=== PATIENT | male | born 1950 | race Caucasian/White ===

== ENCOUNTER 2016-09-27 18:59 | Inpatient (IN) | payer OTHER ==
[~2016-09-27] VITALS: Ht 177.8 cm; Wt 53.2 kg
--- NOTE | ~2016-09-27 | HEMODYNAMI ---
PATIENT:MICKY NY MEDICAL RECORD: [id number] : 54 LOCATION:[facility] D.2205 ADMISSION DATE: 09/27/16 Generatedon:10/01/201613:35 Patient name: MICKY NY Patient #: [id number] SSN: : 1950 Date of study: 10/01/2016 Page: Of Hemodynamic Procedure Report Patient Data Patient Demographics Procedure consent was obtained First Name: MICKY Gender: Male Last Name: YANELY : 1950 [facility] Initial: DANIELLE Age: 66 year(s) Patient #: [id number] Race: Unknown Additional ID: [id number] Contact details [address]: [address] [place] [address] State: [place] City: [place] Zip code: [address] Past Medical History Allergies Allergen Reaction Date Comments Reported Dye contrast 10/01/2016 media Admission Admission Data Admission Date: 09/27/2016 Admission Time: 18:59 Room #: D.2205 Height (in.): 60 BSA: 1.49 (m2) Height (cm.): 152.4 BMI: 22.85 (kg/m2) Weight (lbs.): 117 Weight (kg.): 53.07 Procedure Procedure Types Cath Procedure Peripheral Cath Diagnostic Procedure Cath Peripheral Abd/Extremity Visceral/Mesenteric Mesenteric Arteriogram (Abd Artery) Procedure Description Procedure Date Procedure Date: 10/01/2016 Procedure Start Time: 11:50 Procedure Staff Name Function Gorge Schroeder MD Performing Physician Jose Enrique Gama RT Scrub Kylie Viveros RN Nurse Rosita Plummer RT Firearms Instructor Rosita Plummer RT Monitor Procedure Data Cath Procedure Fluoroscopy Diagnostic fluoroscopy Total fluoroscopy Time: 14 time: 14 min min Diagnostic fluoroscopy Total fluoroscopy dose: dose: 3706.41 mGy 3706.41 mGy Contrast Material Contrast Material Type Amount (ml) Isovue 300 220 Entry Location Entry Primary Successful Side Size Upsize Upsize Entry Closure Succes sful Closure Location (Fr) 1 (Fr) 2 (Fr) Remarks Device Remarks Femoral Right 5 Fr artery Femoral Right Exoseal artery Diagnostic catheters Device Type Used For End Catheter Placement Merit ULTRA BOLUS FLUSH 5Fr 65CM catheter Angiodynamics SOS OMNI 2 NON B 5FR 65CM catheter Procedure Medications Medication Administration Route Dosage Solumedrol I.V. 125 mg Benadryl I.V. 50 mg Oxygen NC 3 l/min Heparin Flush Bag added to field 3 bags (1000units/500ml NS) Lidocaine 1% added to field 20 Versed I.V. 1 mg Versed I.V. 1 mg Fentanyl I.V. 50 mcg Heparin Bolus I.V. 5000 units Fentanyl I.V. 50 mcg Versed I.V. 1 mg Hemodynamics Rest BSA: 1.49 (m2) O2 Consumption: Estimated: 190.7 (ml/min) O2 Consumption indexed: Estimated:127.99 (ml/min/m) Heart Rate: 100 (bpm) Snapshots Pre Cath Intra NCS Post Cath Vital Signs Time Heart Resp SPO2 NIBP (mmHg) Rhythm Pain Sedation Rate (ipm) (%) Status Level (bpm) 11:38:36 96 13 100 Measuring NSR 0 (11) 10(A) , No pain 11:38:58 93 14 100 145/88(119) NSR 0 (11) 10(A) , No pain 11:43:10 96 11 100 143/89(103) NSR 0 (11) 10(A) , No pain 11:47:24 82 12 100 146/86(127) NSR 0 (11) 10(A) , No pain 11:51:40 86 10 100 147/82(111) NSR 0 (11) 10(A) , No pain 11:55:54 88 8 100 143/85(98) NSR 0 (11) 9(A) , No pain 12:00:57 87 8 100 124/86(101) NSR 0 (11) 9(A) , No pain 12:05:56 82 10 100 155/64(119) NSR 0 (11) 9(A) , No pain 12:10:55 94 10 99 Measuring NSR 0 (11) 9(A) , No pain 12:11:10 99 16 100 150/80(112) NSR 0 (11) 10(A) , No pain 12:16:15 117 14 100 Disturbed NSR 0 (11) 10(A) , No pain 12:18:36 100 9 96 Disturbed NSR 0 (11) 10(A) , No pain 12:27:02 93 17 100 Time NSR 0 (11) 9(A) Exceeded , No pain 12:28:14 98 8 99 138/78(99) NSR 0 (11) 9(A) , No pain 12:33:13 93 12 100 Measuring NSR 0 (11) 9(A) , No pain 12:33:19 91 10 100 145/82(100) NSR 0 (11) 9(A) , No pain 12:37:33 93 12 99 152/74(108) NSR 0 (11) 9(A) , No pain 12:42:32 96 9 100 Measuring NSR 0 (11) 9(A) , No pain 12:43:56 96 13 100 Time NSR 0 (11) 9(A) Exceeded , No pain 12:47:45 100 10 100 121/75(98) NSR 0 (11) 9(A) , No pain 12:51:49 100 12 99 124/82(94) NSR 0 (11) 10(A) , No pain 12:55:51 93 11 98 128/93(100) NSR 0 (11) 10(A) , No pain 13:00:01 96 18 99 91/68(83) NSR 0 (11) 10(A) , No pain 13:05:00 97 13 99 Measuring NSR 0 (11) 9(A) , No pain 13:06:22 98 10 98 90/66(78) NSR 0 (11) 9(A) , No pain 13:10:22 96 9 100 97/60(75) NSR 0 (11) 9(A) , No pain 13:14:23 98 12 100 105/65(94) NSR 0 (11) 9(A) , No pain 13:18:27 88 12 99 112/65(97) NSR 0 (11) 10(A) , No pain 13:23:32 98 14 99 112/71(91) NSR 0 (11) 10(A) , No pain 13:27:30 103 18 100 120/91(109) NSR 0 (11) 10(A) , No pain 13:31:34 109 16 99 120/80(101) NSR 0 (11) 10(A) , No pain Medications Time Medication Route Dose Verified Delivered Reason Notes Effectiveness by by 11:22:08 Benadryl I.V. 50 mg Kylie Kylie comtrast King ZENON Viveros disc pad knockout worker 11:22:54 Solumedrol I.V. 125 Kylie Kylie comtrast mg King ZENON Viveros disc pad knockout worker 11:42:03 Oxygen NC 3 Kylie Kylie Per protocol l/min King ZENON Viveros ZENON 11:42:18 Heparin Flush added 3 Kylie Kylie used for Bag to bags Felice ZENON Felice painter ordnance (1000units/500ml field NS) 11:42:29 Lidocaine 1% added 20ml Klyie Kylie for local to vial Felice ZENON Viveros RN anesthetic field 11:49:50 Versed I.V. 1 mg Kylie Kylie for sedation King ZENON Viveros ZENON 12:18:12 Versed I.V. 1 mg Kylie Kylie for sedation King ZENON Viveros RN 12:18:20 Fentanyl I.V. 50 Kylie Kylie for sedation mcg King ZENON Viveros RN 12:41:14 Heparin Bolus I.V. 5000 Kylie Kylie for units King ZENON Viveros RN anticoagulation 12:56:40 Fentanyl I.V. 50 Kylie Kylie for sedation mcg King EZNON Viveros RN 13:01:12 Versed I.V. 1 mg Kylie Kylie for sedation King ZENON Viveros brewmaster Log Time Note 10:17:25 Patient Height : 60 inches 10:17:32 Patient Weight : 117 lbs 11:22:08 Benadryl 50 mg I.V. was given by Kylie Viveros RN; comtrast allergy; 11:22:54 Solumedrol 125 mg I.V. was given by Kylie Viveros RN; comtrast allergy; 11:23:43 Time tracking: Regular hours 11:24:02 Plan of Care:Hemodynamics will remain stable., Cardiac rhythm will remain stable., Comfort level will be maintained., Respiratory function will remain adequate., Patient/ family verbilizes understanding of procedure., Procedure tolerated without complication., Recovers from procedure without complications.. 11:24:05 Correct patient and procedure confirmed by team. 11:24:08 Signed procedure consent form obtained from patient. 11:24:09 - 11:24:14 Use device set IR Diagnostic 11:24:15 Sterile Angiographic Pack opened to sterile field. 11:24:18 Bag Decanter opened to sterile field. 11:24:19 Acist Manifold opened to sterile field. 11:24:20 Acist Hand Control opened to sterile field. 11:24:21 Acist Syringe opened to sterile field. 11:24:44 Cook OffermaticSON 145cm guide wire opened to sterile field. 11:24:45 Micropuncture VSI 4FR kit opened to sterile field. 11:24:46 St Yeison 5FR Sheath opened to sterile field. 11:24:57 - 11:25:05 H&P Date Dictated: 10/01/2016 Within 30 days and on chart.. 11:25:07 Pre-procedure instructions explained to patient. 11:25:08 Pre-op teaching completed and patient verbalized understanding. 11:25:11 Family in waiting room. 11:25:36 Patient NPO since Midnight. 11::46 Patient allergic to Dye contrast media 11:25:51 Is the patient allergic to Iodine/contrast media? Yes. 11:25:54 Was the patient premedicated? Yes 11:26:01 Is patient on blood thinner?No 11:26:05 Patient diabetic? No. 11:26:08 - 11:26:10 ----Pre-sedation anethsthesia assessment.---- 11:26:15 Previous problem with sedation/anesthesia? No ? 11:26:18 Snore? No 11:26:20 Sleep apnea? No 11:26:22 Deviated septum? No 11:26:25 Opens mouth fully? Yes 11:26:27 Sticks out tongue? Yes 11:26:31 Airway obstruction? No ? 11::38 Dentures? No ? 11:26:42 - 11:27:02 Pre procedure: right dorsailis pedis pulse 2+ Normal; easily identifiable; not easily obliterated 11::18 Pre procedure: right posterior tibial pulse Doppler 11:27:28 Rythm: SR with frequent PVCs and PACs pre procedure 11:27:32 IV patent on arrival in left forearm with 0.9% NaCl at [facility]. 11::38 Right groin area was prepped with chlora-prep and draped in sterile fashion 11:27:40 Alarms reviewed by RHomero NHomero 11:27:41 Sharps counted by scrub and verified by R.N. 11:27:41 - 11:30:43 Terumo TORQUE DEVICE PLASTIC .038 opened to sterile field. 11:30:43 Terumo ANGLE 180L glide wire opened to sterile field. 11:30:45 Terumo 5FR COBRA 65CM glide catheter opened to sterile field. 11:36:46 Vital chart was started 11:38:35 ECG and BP/O2 sat monitors applied to patient. 11:38:36 Baseline sample Acquired. 11:38:42 Full Disclosure recording started 11:38:44 - 11:39:02 TUBING, CONTRAST INJCTN HI PRES opened to sterile field. 11:39:06 A Divesquare ULTRA BOLUS FLUSH 5Fr 65CM catheter was advanced over the wire and used for . 11:42:03 Oxygen 3 l/min NC was given by Kylie Viveros RN; Per protocol; 11:42:18 Heparin Flush Bag (1000units/500ml NS) 3 bags added to field was given by Kylie Viveros RN; used for procedure; 11:42:29 Lidocaine 1% 20ml vial added to field was given by Kylie Viveros RN; for local anesthetic; 11:46:05 Physician arrived 11:47:30 [employer] Amplatz Super Stiff 75CM guide wire opened to sterile field. 11:49:28 --------ALL STOP TIME OUT------ 11:49:29 Final Timeout: patient, procedure, and site verified with staff and physician. All members of the team are in agreement. 11:49:44 Physical assessment completed. ASA score P 3 - A patient with severe systemic disease as per Gorge Schroeder MD. 11:49:49 Sedation plan: IV Moderate Sedation Versed, Fentanyl 11:49:50 Versed 1 mg I.V. was given by Kylie Viveros RN; for sedation; 11:50:02 Procedure started. 11:50:06 Local anesthetic to right femoral artery with Lidocaine 1% by Gorge Schroeder MD.INITIAL ACCESS ONLY 11:50:10 Arterial access obtained using ultrasound guidance. 11:51:15 A 5 Fr sheath was inserted into the Right Femoral artery 11:59:03 Terumo 5FR ANGLED 65CM glide catheter opened to sterile field. 12:09:38 Abdominal Aortagram was performed. 12:14:11 A Angiodynamics SOS OMNI 2 NON B 5FR 65CM catheter was advanced over th e wire and used for . 12:18:12 Versed 1 mg I.V. was given by Kylie Viveros RN; for sedation; 12:18:20 Fentanyl 50 mcg I.V. was given by Kylie Viveros RN; for sedation; 12:19:50 Cook GREGG 180 guide wire opened to sterile field. 12:22:33 Encore Inflation Device opened to sterile field. 12:22:41 Cook DL 1 6FR. Guide sheath opened to sterile field. 12:34:57 Cook Bentson 260cm 0.035 guide wire opened to sterile field. 12:35:45 IV infiltrated left forearm. DC's catheter tip intact. New IV started right hand x one attempt #20 angiocath. NS KVO. 12:41:14 Heparin Bolus 5000 units I.V. was given by Kylie Viveros RN; for anticoagulation; 12:45:49 Inflation number: 3 A Cordis Powerflex Pro 3.0 x 20 x 80cm balloon was prepped and advanced across the Undefined1, then inflated to 0 ROSMERY for 0:07 (min:sec). 12:46:10 Inflation Number: 1 A Cordis Amanda 6 x 29 x 135 stent was prepped and advanced across the Undefined1. The stent was deployed at 0 ROSMERY for 0:00 (min:sec). 12:48:39 Inflation number: 2 A Cordis Powerflex Pro 5.0 x 20 x 80cm balloon was prepped and advanced across the Undefined1, then inflated to 0 ROSMERY for 0:07 (min:sec). 12:56:40 Fentanyl 50 mcg I.V. was given by Kylie Viveros RN; for sedation; 13:01:12 Versed 1 mg I.V. was given by Kylie Viveros RN; for sedation; 13:16:58 St Yeison 6Fr sheath opened to sterile field. 13:17:47 Cordis 6Fr Exoseal opened to sterile field. 13:25:09 A sheath was inserted into the Right Femoral artery 13:25:09 Sheath removed intact; hemostasis achieved with Exoseal to the Right Femoral artery. 13:25:15 Procedure and supply charges have been captured, reviewed, submitted an d are correct. 13:32:25 Procedure ended.(Physican Out) 13:32:54 Fluoroscopy time 14.00 minutes. 13:33:08 Fluoroscopy dose: 3706.41 mGy 13:33:08 Flurop Dose total: 3706.41 13:33:23 Contrast amount:Isovue 300 220ml. 13:33:24 Sharps counted by scrub and verified by R.N. 13:35:49 Vital chart was stopped Intervention Summary Intervention Notes Time ActionType Lesion and Equipment Action# Pressure Duration Attributes Used 12:45:49 Inflate Undefined1 Cordis 3 0 00:07 balloon Powerflex Pro 3.0 x 20 x 80cm balloon 12:46:10 Place stent Undefined1 Cordis 1 0 00:00 Amanda 6 x 29 x 135 stent 12:48:39 Inflate Undefined1 Cordis 2 0 00:07 balloon Powerflex Pro 5.0 x 20 x 80cm balloon Device Usage Item Name Manufacture Quantity Catalog Number Hospital Part Current Sc nimal Lot# / Charge Number Stock Stock Serial# Code Sterile Cardinal 1 [id number] 188699 122715 5 Angiographic Health Pack Bag Decanter Microtek 1 [id number] 986749 80070 627515 5 Medical Inc. Acist Acist Medical 1 68013 414569 833669 918947 5 Manifold Systems Inc Acist Hand Acist Medical 1 77563 249706 998645 995659 5 Control Systems Inc Acist Syringe Acist Medical 1 71636 373957 261878 458073 20 Systems Inc [facility] 1 [id number] 634487 436606 5 [id number] 145cm guide wire Micropuncture VSI VASCULAR 1 7266V 334562 577044 [address]SI [address] kit [address] Yeison 5FR St Yeison 1 961637 875881 923300 5 [id number] Sheath Terumo TORQUE [place] 1 TD01 445847 570376 860089 5 DEVICE Scientific PLASTIC .038 Terumo ANGLE Terumo 1 [id number] 025926 999032 5 180L glide wire Terumo 5FR Terumo 1 CG502 386404 328749 5 COBRA 65CM glide catheter TUBING, [facility] Medical 1 [id number] 152149 249939 024978 5 CONTRAST INJCTN HI PRES [facility] ULTRA [facility] Medical 1 [id number] 256376 027778 5 BOLUS FLUSH 5Fr 65CM catheter [place] Sci [place] 1 [id number] 001325 045995 250009 5 Amplatz Super Scientific Stiff 75CM guide wire Terumo 5FR Terumo 1 CG507 967462 744563 5 ANGLED 65CM glide catheter Angiodynamics Angiodynamics 1 [id number] 761167 78431 047709 5 SOS OMNI 2 NON B 5FR 65CM catheter [facility] 1 A69001 300965 309735 5 8497873 180 guide wire Encore [place] 1 [id number] 612108 433128 772505 5 Inflation Scientific Device Cook DL 1 Cook Medical 1 B71846 383755 686255 5 [id number] 6FR. Guide sheath Cook Bentson Cook Medical 1 A65640 083853 268048 816682 4 4297899 260cm 0.035 guide wire Cordis Cardinal 1 [id number] 014197 710795 5 [id number] Amanda 6 x Health 29 x 135 stent Cordis Cardinal 1 [id number] 070428 760105 744930 5 Powerflex Pro Health 5.0 x 20 x 80cm balloon Cordis Cardinal 1 [id number] 995618 847466 5 Powerflex Pro Health 3.0 x [address] Yeison [address] St Yeison 1 194717 976438 600530 5 [id number] sheath Cordis 6Fr Cardinal 1 EX600 519287 585339 281769 10 [facility] Signature Audit [place] Stage Time Signature Unsigned Intra-Procedure 10/01/2016 Rosita Plummer 1:35:35 PM RT(R) Signatures Monitor : Rosita Plummer RT Signature : Date : Time : [facility] [address] [place] [address]
[~2016-09-27 18:59] MED LIST: AVODART0.5 MG PO; BAYER CHEWABLE81 MG PO; NEURONTIN 100100 MG PO; PLAVIX75 MG PO; PRINIVIL10 MG PO
[2016-09-27] MEDS ORDERED: PROTONIX40 MG PO (19:37)
[2016-09-27] MEDS ORDERED: CARAFATE1 G PO (19:38)
[2016-09-27] MEDS ORDERED: HYDROCODONE-APA1 TAB PO (19:38)
[2016-09-27] MEDS ORDERED: VITAMIN B-1000 MCG/M IM (19:39)
[2016-09-27] MEDS ORDERED: FOLIC ACID1 MG PO (19:39)
[2016-09-27] MEDS ORDERED: FLOMAX0.4 MG PO (19:40)
[2016-09-27] MEDS ORDERED: MULTI-DAY VITAM1 TAB PO (19:40)
[2016-09-27] MEDS ORDERED: VITAMIN D2000 UNIT PO (19:41)
[2016-09-27] MEDS ORDERED: PROBIOTIC1 EAC1 PO (19:41)
[2016-09-28] VITALS (11 sets, daily range): BP systolic 106–141; BP diastolic 57–79; Ht 177.8 cm; Wt 53.2 kg
[2016-09-28 05:25] LABS: BASOPHILS 0.1 % (0.0-2.0); EOSINOPHILS 4.7 % (0-7); HEMATOCRIT 22.5 % (42.0-54.0); IMMATURE GRANULOCYTES 0.1 % (0-5); LYMPHOCYTES 25.6 % (15-50); MCH 33.5 pg (26.0-34.0); MCHC 32.4 g/dL (31.0-37.0); MCV 103.2 fL (80.0-100.0); MEAN PLATELET VOLUME 9.5 fL (7.4-10.4); MONOCYTES 8.6 % (2-11); NEUTROPHILS 60.9 % (40-80); RBC 2.18 10x6/uL (4.20-6.10); RDW 20.6 % (11.5-14.5); WBC 7.3 10x3/uL (4.8-10.8)
[2016-09-28 05:42] LABS: HEMOGLOBIN 7.3 g/dL (13.5-17.5); PLATELET COUNT 299 10x3/uL (130-400)
[2016-09-28 05:49] LABS: ALBUMIN 2.1 g/dL (3.4-5.0); ALKALINE PHOSPHATASE 84 U/L (46-116); ALT (SGPT) 10 U/L (10-68); BILIRUBIN - TOTAL 0.46 mg/dL (0.2-1.3); CALC OSMOLALITY 278 mosm/kg (275-300); CALCIUM 8.4 mg/dL (8.5-10.1); CARBON DIOXIDE 29.3 mmol/L (21.0-32.0); CHLORIDE - SERUM 103 mmol/L (98-107); CREATININE - SERUM 0.8 mg/dL (0.6-1.3); GLUCOSE 103 mg/dL (74-106); POTASSIUM - SERUM 3.8 mmol/L (3.5-5.1); PROTEIN - SERUM 5.9 g/dL (6.4-8.2); SODIUM 139 mmol/L (136-145); UREA NITROGEN 15 mg/dL (7-18); eGFR NON AFRICAN AMERICAN > 90 mL/min (90-120)
--- NOTE | 2016-09-28 07:20 | NUR ---
PATIENT RECEIVED ALERT IN HIGH BLAKE POSITION WATCHING TV. RESPIRATIONS EVEN AND UNLABORED. RATES PAIN 3/10. SIDE RAILS UP X2. BED IN LOW POSITION. CALL LIGHT IN REACH.
--- NOTE | 2016-09-28 08:45 | NUR ---
PATIENT ALERT IN BED. NO SIGNS OF DISTRESS NOTED. NEW BOTTLE OF PROCAL INITIATED. IV TUBING CHANGED. PATIENT DENIES NEEDS. AT BEDSIDE. SIDE RAILS UP X2. BED IN LOW POSITION. CALL LIGHT IN REACH.
[2016-09-28 09:08] LABS: AMYLASE - SERUM 35 U/L (25-115); LIPASE 249 U/L (73-393)
--- NOTE | 2016-09-28 09:40 | NUR ---
DILAUDID OVEN BUILDER SET ACCORDING TO ORDER. USE EXPLAINED. STATES UNDERSTANDING. SIDE RAILS UP X2. BED IN LOW POSITION. CALL LIGHT AND OVEN BUILDER BUTTON IN REACH. PRESENT.
[2016-09-28 10:24] LABS: MAGNESIUM - SERUM 1.6 mg/dL (1.8-2.4); PHOSPHOROUS 3.2 mg/dL (2.5-4.9)
[2016-09-28 10:44] LABS: APPEARANCE CLEAR (CLEAR); COLOR DK YELLOW (YELLOW)
[2016-09-28 10:45] LABS: BACTERIA FEW /hpf (NONE SEEN); BILIRUBIN NEGATIVE (NEGATIVE); EPITHELIAL CELLS RARE /hpf (0-5); GLUCOSE NEGATIVE (NEGATIVE); KETONE NEGATIVE (NEGATIVE); LEUKOCYTE ESTERASE NEGATIVE (NEGATIVE); MUCUS >1+ /lpf (NONE SEEN); NITRITE NEGATIVE (NEGATIVE); PROTEIN NEGATIVE (NEGATIVE); SPECIFIC GRAVITY 1.025 (1.005-1.020)
[2016-09-28 10:46] LABS: RED CELLS - URINE RARE /hpf (0-5)
--- NOTE | 2016-09-28 11:45 | NUR ---
SCDS ON BILATERALLY. USE EXPLAINED. DENIES NEEDS. SIDE RAILS UP X2. BED IN LOW POSITION. CALL LIGHT IN REACH.
--- NOTE | 2016-09-28 13:00 | NUR ---
PATIENT IN HIGH BLAKE POSITION RESTING WITH EYES CLOSED. RESPIRATIONS EVEN AND UNLABORED. SIDE RAILS UP X2. BED IN LOW POSITION. CALL LIGHT IN REACH.
--- NOTE | 2016-09-28 13:21 | NUR ---
20 GAUGE IV SITED TO RIGHT FOREARM X1 ATTEMPT BY ZENON STORY
--- NOTE | 2016-09-28 15:55 | NUR ---
FIRST UNIT PRBC INITIATED. TRANSFUSING TO RIGHT FOREARM WITHOUT DIFFICULTY. VITAL SIGNS STABLE. DENIES NEEDS. AT BEDSIDE. SIDE RAILS UP X2. BED IN LOW POSITION. CALL LIGHT AND RANGER AIDE BUTTON IN REACH.
--- NOTE | 2016-09-28 16:51 | NUR ---
Patient Name: MICKY NY Admission Status: Elective Accout number: [id number] Admission Date: 09-27-2016 : 1950 Admission Diagnosis: Attending: CLIFFORD Current LOS: 1 Anticipated DC Date: 10-01-2016 Planned Disposition: Home Primary Insurance: [employer] PPO Discharge Planning Comments: CM MET WITH PATIENT AND (SANDRINE) REGARDING D/C NEEDS AND PLANS. PATIENT STATED THERE ARE 4 STEPS W/O RAILS TO ENTER HOME AND NO STAIRS INSIDE HOME. PATIENT IS INDEPENDENT WITH HIS CARE AND HAS NO DME AT HOME. PATIENT HAS NOT HAD HOME HEALTH. PATIENTS PCP IS DR. BECERRA AND PHARMACY IS [facility]. CM WILL CONTINUE TO FOLLOW PATIENT WITH D/C NEEDS AND PLANS. PCP DR[facility]- [phone] SANDRINE (SPOUSE) [phone] Supervisor Electronics Assembly: Chantel Landry Is the patient Alert and Oriented? Yes 0 * How many steps to enter\exit or inside your home? 4 NO RAILS 0 * PCP DR. BECERRA 0 * Pharmacy [facility] 0 * Preadmission Environment Home with Family 0 * ADLs Independent 0 * Equipment None 0 * List name and contact numbers for known caregivers / representatives who currently or will assist patient after discharge: SANDRINE () [phone] 0 * Community resources currently utilized None 0 * Additional services required to return to the preadmission environment? Yes 0 * Can the patient safely return to the preadmission environment? Yes 0 * Has this patient been hospitalized within the prior 30 days at any hospital? No 0 Grand Total: 0
--- NOTE | 2016-09-28 18:15 | NUR ---
ALERT IN BED. TOLERATING CLD. DENIES NEEDS. SIDE RAILS UP X2. BED IN LOW POSITION. CALL LIGHT IN REACH.
--- NOTE | 2016-09-28 19:46 | NUR ---
PATIENT SITTING UP IN BED WATCHING TV. BLOOD INFUSING TO RIGHT FOREARM IV. NO SIGNS OF DISTRESS NOTED. VSS. DENIES ANY NEEDS AT THIS TIME. PRESENT. BED LOW. CALL LIGHT IN REACH.
[2016-09-29 05:34] LABS: BASOPHILS 0.2 % (0.0-2.0); EOSINOPHILS 0 % (0-7); IMMATURE GRANULOCYTES 0.3 % (0-5); LYMPHOCYTES 8.7 % (15-50); MCHC 33.2 g/dL (31.0-37.0); MEAN PLATELET VOLUME 9.8 fL (7.4-10.4); MONOCYTES 2.1 % (2-11); NEUTROPHILS 88.7 % (40-80); PLATELET COUNT 269 10x3/uL (130-400); RDW 20.8 % (11.5-14.5); WBC 6.7 10x3/uL (4.8-10.8)
[2016-09-29 05:39] LABS: HEMATOCRIT 28.6 % (42.0-54.0); HEMOGLOBIN 9.5 g/dL (13.5-17.5); MCV 96.3 fL (80.0-100.0); RBC 2.97 10x6/uL (4.20-6.10)
[2016-09-29 05:58] LABS: % SATURATION 47 % (15-55); IRON 60 ug/dl (35-150); TOTAL IRON BIND CAPACITY 126 ug/dl (260-445); UNSAT IRON BIND CAPACITY 66 ug/dl (150-375)
[2016-09-29 06:06] LABS: ALBUMIN 2.1 g/dL (3.4-5.0); ALKALINE PHOSPHATASE 104 U/L (46-116); ALT (SGPT) 14 U/L (10-68); AMYLASE - SERUM 27 U/L (25-115); BILIRUBIN - DIRECT 0.24 mg/dL (0.00-0.30); C-REACTIVE PROTEIN 7.8 mg/dL (0.0-0.9); CALC OSMOLALITY 269 mosm/kg (275-300); CARBON DIOXIDE 27.3 mmol/L (21.0-32.0); CHLORIDE - SERUM 100 mmol/L (98-107); CREATININE - SERUM 0.7 mg/dL (0.6-1.3); FERRITIN 986 ng/mL (3-244); GLUCOSE 158 mg/dL (74-106); LDH 103 U/L (85-227); LIPASE 124 U/L (73-393); MAGNESIUM - SERUM 1.8 mg/dL (1.8-2.4); POTASSIUM - SERUM 4.3 mmol/L (3.5-5.1); SODIUM 134 mmol/L (136-145); UREA NITROGEN 10 mg/dL (7-18); eGFR NON AFRICAN AMERICAN > 90 mL/min (90-120)
[2016-09-29 06:48] LABS: ERYTHROCYTE SEDIMENTATION RATE 73 mm/hr (0-20)
--- NOTE | 2016-09-29 07:25 | NUR ---
PATIENT RECEIVED ALERT IN HIGH BLAKE POSITION WATCHING TV. RESPIRATIONS EVEN AND UNLABORED. SIDE RAILS UP X2. BED IN LOW POSITION. CALL LIGHT IN REACH.
[2016-09-29 08:13] VITALS: BP 142/70
--- NOTE | 2016-09-29 08:15 | NUR ---
PATIENT ALERT IN HIGH BLAKE POSITION. NO SIGNS OF DISTRESS NOTED. SCHEDULED PREMEDICATION ADMINISTERED WITH SIP OF WATER FOR MRI. AT BEDSIDE. DENIES NEEDS. SIDE RAILS UP X2. BED IN LOW POSITION. CALL LIGHT IN REACH.
--- NOTE | 2016-09-29 09:45 | NUR ---
PATIENT OFF FLOOR VIA WHEELCHAIR TO MRI
[2016-09-29 10:17] LABS: CEA 2.8 ng/mL (0.0-4.7)
--- NOTE | 2016-09-29 11:35 | NUR ---
PATIENT OFF FLOOR TO GI LAB VIA BED
[2016-09-29 11:56] VITALS: BP 157/74
--- NOTE | 2016-09-29 12:42 | CN ---
PATIENT NAME:MICKY NY MEDICAL RECORD: [id number] : 54 LOCATION:D.[place] [facility] ADMIT DATE: 09/27/16 ACCOUNT: [id number] CONSULTING PHYSICIAN: VALENCIA ARZOLA MD REFERRING PHYSICIAN: GREGORY BECERRA M.D. DATE OF CONSULTATION: 09/28/2016 REFERRING PHYSICIAN: Wilver Mena MD HISTORY OF PRESENT ILLNESS: The patient is a 66-year-old white male who basically was admitted with progressive epigastric pain associated with poor appetite and 20-pound weight loss over the past month or so. I was asked to see the patient in this regard. I actually met this man back in 2007 when he has some lower abdominal pain and pneumaturia. He had a flex sig which revealed severe sigmoid diverticulosis and a colovesical fistula. This was repaired at that time with a sigmoid colectomy. A year or so ago, he had prostate cancer and underwent radiation therapy. He was referred to me last May by Dr. Arshad and Dr. Luis because of a trace heme-positive stool and chronic anemia. This has been a macrocytic anemia. He was reportedly found to have a component of B12 deficiency and was subsequently placed on B12 supplementation. This led to a workup including an EGD and colonoscopy. His colonoscopy was in May of last year and was completely normal with the exception of surgical change consistent with his sigmoid colectomy. He did have a few scattered diverticula and small internal hemorrhoids. He was then hospitalized in August of this year and underwent a laparoscopic cholecystectomy as well as an EGD. His EGD revealed a small hiatal hernia, chronic atrophic gastritis, and multiple superficial and somewhat friable ulcerations throughout the stomach. Biopsies were negative for H. pylori. He was placed on Carafate and Protonix and I have not seen him since then. He did undergo a cholecystectomy and apparently did well for a few days afterwards. However, he has had recurrent symptoms and now was admitted with upper abdominal pain, weight loss and recurrent anemia with hematocrit in the low 20s. He has not seen blood in his stool. PAST MEDICAL HISTORY: As above. He also has cerebrovascular disease, status post carotid endarterectomy. He has had this colovesical fistula. ALLERGIES: MRI CONTRAST DYE. HOME MEDICATIONS: Reportedly include Protonix 40 mg twice daily, Carafate twice daily, vitamins, folic acid, B12, and hydrocodone. He has also been on Neurontin, lisinopril, Avodart and had been on Plavix and aspirin, but I believe these have been discontinued. FAMILY HISTORY: Negative for GI disease. REVIEW OF SYSTEMS: Noncontributory per HPI. SOCIAL HISTORY: The patient is a longtime smoker. He drinks alcohol on social basis. CONSULT REPORT [id number] MICKY [place] PHYSICAL EXAMINATION: GENERAL: Reveals a chronically ill-appearing fairly frail, thin white male who weighs 114 pounds. He is in mild distress. VITAL SIGNS: Stable, afebrile. CHEST: Clear. HEART: Regular rate and rhythm. ABDOMEN: Soft. He has mild epigastric tenderness present. EXTREMITIES: No edema. LABORATORY DATA: Reveals a white count 7000, hematocrit 42, MCV 103, platelet count 209,000 with a normal differential. Electrolytes are normal. BUN 15, creatinine 0.8. Liver enzymes are normal. Phosphorus was normal. UA is negative. CT of the abdomen and pelvis reveals multiple noncalcified nodules in the lungs of unclear etiology. He also has surgical drainage consistent with a partial colectomy, and 1.9 cm cystic lesion in the pancreatic tail that was indeterminate. Abdominal ultrasound reveals post cholecystectomy changes. The cystic lesion in the pancreatic tail was not seen on ultrasound, it was seen on CT. IMPRESSION: 1. A 20-pound weight loss over the past month of unclear etiology, obviously worrisome for some type of occult malignancy. 2. Status post recent laparoscopic cholecystectomy. 3. Macrocytic anemia, reportedly due to B12 deficiency; however, he has not responded to B12 supplementation, it appears. 4. Trace heme-positive stool in the past, now status post recent colonoscopy in May 2006 that was normal other than a sigmoid surgical changes. 5. Chronic atrophic gastritis with friability and erosions noted on recent EGD 1 month ago, now on Protonix and Carafate. 6. History of a colovesical fistula status post sigmoid colectomy in 2007. 7. Prostate cancer status post radiation therapy a year or so ago. 8. Abnormal CT of the chest to rule out mass. 9. A 1.9 cm lesion in the pancreatic tail of unclear etiology, rule out carcinoma. RECOMMENDATION: 1. Full anemia laboratory data including B12 levels. 2. Repeat EGD in a.m. 3. Okay with MRI, already ordered. 4. Check a CA 19-9. 5. Check a C-reactive protein and sed rate. 6. EGD in a.m. 7. Probably needs to get hematology on board. 8. We will check amylase and lipase. TRANSINT:[id number] Voice Confirmation ID: [id number] DOCUMENT ID: [id number] CONSULT REPORT [id number] MICKY [place], VALENCIA BERKOWITZ at 1242 CC: NATHALIE KNOWLES MD, ELMORAAUBREY MD, GREGORY BECERRA M.D. and [id number] DICTATION DATE: 09/28/161938 CRYSTAL LAPPER: 09/28/162056 ADM IN [facility] [address] [place] [address]
--- NOTE | 2016-09-29 13:09 | NUR ---
1302 MULTIPLE AVMS BURNED WITH GOLD PROBE ELECTRICAL CONNECTOR.
--- NOTE | 2016-09-29 13:33 | NUR ---
PATIENT BACK TO ROOM FROM GI LAB. A/O X4. UP TO RESTROOM WITHOUT ASSIST. AT BEDSIDE.
[2016-09-29 15:58] VITALS: BP 159/79
--- NOTE | 2016-09-29 16:18 | NUR ---
ALERT IN HIGH BLAKE POSITION WITH AT BEDSIDE. NO SIGNS OF DISTRESS NOTED. DENIES NEEDS. SIDE RAILS UP X2. BED IN LOW POSITION. CALL LIGHT IN REACH.
--- NOTE | 2016-09-29 18:15 | NUR ---
SITTING UP IN BED ALERT TALKING ON PHONE. NO SIGNS OF DISTRESS NOTED. AT BEDSIDE. SIDE RAILS UP X2. BED IN LOW POSITION. CALL LIGHT IN REACH.
[2016-09-29 21:36] VITALS: BP 163/89
[2016-09-30 01:00] VITALS: BP 120/63
--- NOTE | 2016-09-30 04:59 | NUR ---
PATIENT IN SEMI-FOWLERS POSITION. PATIENT ACCIDENTALLY TOOK IV OUT WHEN SCRATCHING HIS ARM. RIGHT ARM IS SWOLLEN. BLOOD BAND REMOVED DUE TO SWELLING IN RIGHT ARM.
[2016-09-30 05:48] LABS: BASOPHILS 0.1 % (0.0-2.0); EOSINOPHILS 0.2 % (0-7); HEMATOCRIT 27.3 % (42.0-54.0); HEMOGLOBIN 9.1 g/dL (13.5-17.5); IMMATURE GRANULOCYTES 0.2 % (0-5); LYMPHOCYTES 12.4 % (15-50); MCH 32.2 pg (26.0-34.0); MCHC 33.3 g/dL (31.0-37.0); MCV 96.5 fL (80.0-100.0); MEAN PLATELET VOLUME 10.2 fL (7.4-10.4); MONOCYTES 6.7 % (2-11); NEUTROPHILS 80.4 % (40-80); PLATELET COUNT 265 10x3/uL (130-400); RBC 2.83 10x6/uL (4.20-6.10); RDW 20.5 % (11.5-14.5)
[2016-09-30 06:10] LABS: ALBUMIN 2.1 g/dL (3.4-5.0); ALKALINE PHOSPHATASE 97 U/L (46-116); ALT (SGPT) 15 U/L (10-68); BILIRUBIN - TOTAL 0.36 mg/dL (0.2-1.3); CALC OSMOLALITY 276 mosm/kg (275-300); CALCIUM 8.2 mg/dL (8.5-10.1); CARBON DIOXIDE 27.1 mmol/L (21.0-32.0); CHLORIDE - SERUM 103 mmol/L (98-107); CREATININE - SERUM 0.8 mg/dL (0.6-1.3); GLUCOSE 114 mg/dL (74-106); POTASSIUM - SERUM 3.8 mmol/L (3.5-5.1); PROTEIN - SERUM 5.3 g/dL (6.4-8.2); SODIUM 138 mmol/L (136-145); eGFR NON AFRICAN AMERICAN > 90 mL/min (90-120)
[2016-09-30 06:15] LABS: UREA NITROGEN 13 mg/dL (7-18)
[2016-09-30 06:18] LABS: WBC 8.8 10x3/uL (4.8-10.8)
--- NOTE | 2016-09-30 07:25 | NUR ---
PATIENT RECEIVED ALERT IN HIGH BLAKE POSITION. NO SIGNS OF DISTRESS NOTED. AT BEDSIDE. DENIES NEEDS. SIDE RAILS UP X2. BED IN LOW POSITION. CALL LIGHT IN REACH.
--- NOTE | 2016-09-30 08:13 | NUR ---
PATIENT ALERT IN HIGH BLAKE POSITION. RESPIRATIONS EVEN AND UNLABORED. SCHEDULED MEDICATION ADMINISTERED. DENIES NEEDS. AT BEDSIDE. SIDE RAILS UP X2. BED IN LOW POSITION. CALL LIGHT AND LITHOGRAPH PRESS OPERATOR BUTTON IN REACH.
[2016-09-30 08:19] VITALS: BP 146/76
[2016-09-30 09:19] LABS: ERYTHROPOIETIN 44.8 mIU/mL (2.6-18.5); FOLATE (FOLIC ACID) - SERUM 3.7 ng/mL (>3.0)
--- NOTE | 2016-09-30 10:41 | NUR ---
NUTRITION MONITORING & EVAL CHART REVIEWED, PT VISIT. DIET ADVANCED TO REG WITH 100% INTAKE BREAKFAST. WILL CONTINUE TO PROVIDE DIET, HONOR FOOD PREFERENCES. RD FOLLOWING
[2016-09-30 11:53] VITALS: BP 151/79
--- NOTE | 2016-09-30 12:15 | NUR ---
PATIENT IN HIGH BLAKE POSITION RESTING QUIETLY. AT BEDSIDE. PATIENT MADE NPO FOR SCHEDULED CTA OF ABDOMEN. AND PATIENT STATES UNDERSTANDING. CALL LIGTH IN REACH. BED IN LOW POSITION.
--- NOTE | 2016-09-30 14:45 | NUR ---
ALERT IN HIGH BLAKE POSITION WITH TABLET IN HAND. RESPIRATIONS EVEN AND UNLABORED. SIDE RAILS UP X2. BED IN LOW POSITION. CALL LIGHT IN REACH.
--- NOTE | 2016-09-30 17:20 | NUR ---
ALERT IN HIGH BLAKE POSITION EATING DINNER. TOLERATING WELL. DENIES NEEDS. SIDE RAILS UP X2. BED IN LOW POSITION. CALL LIGHT IN REACH.
[2016-09-30 17:34] VITALS: BP 134/63
--- NOTE | 2016-09-30 19:50 | PRO ---
PATIENT:[place] MEDICAL RECORD: [id number] : 54 LOCATION:D[id number] ADMISSION DATE: 09/27/16 PROCEDURE PERFORMED BY: VALENCIA SHARMA MD DATE OF PROCEDURE: 09/29/2016 BENCH MOLDER: Valencia Sharma MD PROCEDURE: EGD with cauterization of multiple AVMs with a gold probe for hemorrhage control. INDICATION: The patient is a 66-year-old white male who was admitted with progressive epigastric pain associated with poor appetite and 20-pound weight loss in the past month or so. He has also had anemia and a tracing positive stool, actually noted a couple months ago. There has been no melena or hematochezia. He was referred to me last May by Dr. Duncan and Dr. Luis because of a tracing positive stool and chronic anemia. It was a macrocytic anemia with an MCV between 100-105. He was reportedly found to have a component of B12 deficiency and was placed on B12 supplementation. This led to a workup including an EGD and colonoscopy. 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 He did have a few scattered diverticula remaining and small internal hemorrhoids. He was then hospitalized in August 2016, underwent a laparoscopic cholecystectomy as well as an EGD. His EGD revealed a small hiatal hernia, chronic atrophic gastritis and multiple superficial and somewhat friable ulcerations throughout the stomach. Biopsies were negative for H. pylori. He was placed on Protonix and Carafate and I have not seen him since then. He did undergo a cholecystectomy and apparently was pain free for a few days afterwards, however, has had recurrent symptoms and now admitted with upper abdominal pain, weight loss, and recurrent anemia with hematocrit in the low 20s. On admission, his MCV is 103, hematocrit 22, electrolytes are normal, BUN 15, creatinine 0.8. CT of the abdomen, pelvis and chest revealed multiple noncalcified nodules in the lungs of unclear etiology. He also had surgical changes consistent with a partial colectomy and 1.9 cm cystic lesion in the pancreatic tail that was indeterminate. Abdominal ultrasound revealed post-cholecystectomy changes, but otherwise negative exam. An MRI of the abdomen has been ordered. His sed rate is high at 76 and C-reactive protein is also a little elvated at 5. His iron saturation is 49%. He has a normal differential. Liver enzymes are normal. Bilirubin was normal. Amylase and lipase are normal. He is now for EGD basically to see if his ulcerative and friable type atrophic gastritis is healing and to try to assess source of his anemia and pain. PREMEDICATION: Taper anesthesia. INSTRUMENT: Olympus video gastroscope. FINDINGS: The endoscope was passed through the oropharynx to the second portion PROCEDURE NOTE [id number] [place] of the duodenum without difficulty. The esophagus was normal. The stomach was remarkable for small hiatal hernia. The duodenum was normal. The stomach was entered and was remarkable for marked improvement and healing of his previously noted ulcerations. On this exam, he basically had evidence of chronic atrophic gastritis as well as multiple AVMs scattered throughout the stomach from the fundus to the proximal antrum. One of these was quite friable in the proximal body of the stomach and was cauterized as was the vast majority of the rest of these AVMs seen. There was 1 "large patch" of AVM like lesions in the proximal antrum on the posterior wall. This area was not very friable and possibly had a mild ischemic component to it. It was not ulcerated at all and certainly it did not look like a malignancy. I simply cauterized this area as best possible with gold probe. The rest of exam was normal. The patient tolerated the procedure well without any immediate complication. IMPRESSION: 1. Small hiatal hernia. 2. Chronic atrophic gastritis. 3. 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 Most of these were cauterized with gold probe using 30 joules. Again, there was a "large patch" in the proximal antrum along the posterior wall. There was probably a little too much for the gold probe to handle, although was tried. 4. Otherwise, normal EGD. 5. Abdominal pain, still of unclear etiology. There was nothing in the stomach that could explain that. It again looked much improved than it did on his last EGD a month ago. RECOMMENDATIONS: 1. Follow hematocrit. 2. Follow up multiple pending lab especially with B12 level since his MCV seems to be rising from 102-105 over the past few weeks. Again, his iron studies are normal. He has been followed by Dr. Duncan in the recent past. 3. Sed rate and C-reactive protein are definitely up and if nothing else is found, he might want to consider trial of steroids in the near future for his pain. 4. Follow up MRI of the abdomen already ordered. TRANSINT:[id number] Voice Confirmation ID: [id number] DOCUMENT ID: [id number] VALENCIA SHARMA MD at 1950 CC: NATHALIE KNOWLES MD, JORGE A AZEVEDO MD, AUBREY DUNCAN MD [id number] GISELA DICTATION DATE: 09/29/16 1320 SPINNING FRAME CLEANER: 09/29/16 1355 ADM IN [facility] [address] [place] [address]
[2016-09-30 21:00] VITALS: BP 127/71
[2016-10-01] VITALS (10 sets, daily range): BP systolic 72–153; BP diastolic 51–96
[2016-10-01 06:52] LABS: BASOPHILS 0 % (0.0-2.0); EOSINOPHILS 1.2 % (0-7); HEMATOCRIT 26.8 % (42.0-54.0); HEMOGLOBIN 8.7 g/dL (13.5-17.5); IMMATURE GRANULOCYTES 0.2 % (0-5); LYMPHOCYTES 11.2 % (15-50); MCH 31.9 pg (26.0-34.0); MCHC 32.5 g/dL (31.0-37.0); MCV 98.2 fL (80.0-100.0); MEAN PLATELET VOLUME 9.9 fL (7.4-10.4); MONOCYTES 7.4 % (2-11); PLATELET COUNT 219 10x3/uL (130-400); RBC 2.73 10x6/uL (4.20-6.10); RDW 19.8 % (11.5-14.5); WBC 9.4 10x3/uL (4.8-10.8)
[2016-10-01 07:22] LABS: ALBUMIN 2.1 g/dL (3.4-5.0); ALKALINE PHOSPHATASE 83 U/L (46-116); ALT (SGPT) 16 U/L (10-68); CALC OSMOLALITY 264 mosm/kg (275-300); CALCIUM 7.8 mg/dL (8.5-10.1); CHLORIDE - SERUM 98 mmol/L (98-107); CREATININE - SERUM 0.7 mg/dL (0.6-1.3); GLUCOSE 104 mg/dL (74-106); POTASSIUM - SERUM 3.4 mmol/L (3.5-5.1); PROTEIN - SERUM 5.4 g/dL (6.4-8.2); SODIUM 132 mmol/L (136-145); UREA NITROGEN 13 mg/dL (7-18); eGFR NON AFRICAN AMERICAN > 90 mL/min (90-120)
[2016-10-01 07:32] LABS: APTT 37.2 SECONDS (22.8-39.4); INR 1.17 (0.85-1.17); PROTIME 14.8 SECONDS (11.6-15.0)
--- NOTE | 2016-10-01 08:49 | NUR ---
THIS NURSE CALLED RADIOLOGY IN REGARDS TO POSSIBLE ABDOMINAL ARTERIOGRAM. INSTRUCTED TO KEEP PATIENT NPO. NO PREOP ORDERS AT THIS TIME. STATED THAT DOCTOR WILL BE IN WITH PATIENT THIS MORNING AND TALK TO HIM BEFORE DECIDING TO DO PROCEEDURE.
--- NOTE | 2016-10-01 10:00 | NUR ---
CONSENT SIGNED BY PATIENT FOR ABDOMINAL ARTERIOGRAM.
--- NOTE | 2016-10-01 12:54 | NUR ---
PATIENT REMAINS OFF OF GARCIA FOR ABDOMINAL ATERIOGRAM
--- NOTE | 2016-10-01 13:41 | NUR ---
RADIOLOGY CALLED. PATIENT IS DONE WITH PROCEEDURE. HAS A RIGHT GROIN STENT SMA. WITH A 4X4 OPSITE DRESSING. WILL BE BRING PATIENT BACK TO ROOM.
--- NOTE | 2016-10-01 14:00 | NUR ---
PATIENT RETURNED TO ROOM. AT BEDSIDE. V/S TAKEN AND CHARTED. PATIENT STATES NO PAIN/DISC AT THIS TIME
--- NOTE | 2016-10-01 15:15 | NUR ---
LYING IN BED AT THIS TIME. RESPIRATIONS EVEN AND NON LABORED. IV PATENT. FAMILY MEMBER AT BEDSIDE. DENIES NEEDS. CALL LIGHT AND URINAL IN REACH. WILL CONTINUE WITH PLAN OF CARE.
--- NOTE | 2016-10-01 18:13 | NUR ---
NO ADVERSE REACTION FROM PROCEEDURE. ATE 100% OF SUPPER. HAS DENIES ANY PAIN/DISC. DRESSING TO RIGHT GROIN CLEAN/DRY/INTACT.
[2016-10-02 04:20] VITALS: BP 156/72
[2016-10-02 05:24] LABS: BASOPHILS 0 % (0.0-2.0); EOSINOPHILS 0 % (0-7); HEMATOCRIT 27.7 % (42.0-54.0); HEMOGLOBIN 9.1 g/dL (13.5-17.5); IMMATURE GRANULOCYTES 0.1 % (0-5); LYMPHOCYTES 7.4 % (15-50); MCH 32.4 pg (26.0-34.0); MCHC 32.9 g/dL (31.0-37.0); MCV 98.6 fL (80.0-100.0); MEAN PLATELET VOLUME 10.7 fL (7.4-10.4); MONOCYTES 3.8 % (2-11); NEUTROPHILS 88.7 % (40-80); PLATELET COUNT 262 10x3/uL (130-400); RBC 2.81 10x6/uL (4.20-6.10); RDW 19.4 % (11.5-14.5); WBC 7.8 10x3/uL (4.8-10.8)
[2016-10-02 05:44] LABS: ALBUMIN 2.1 g/dL (3.4-5.0); ALKALINE PHOSPHATASE 91 U/L (46-116); ALT (SGPT) 19 U/L (10-68); BILIRUBIN - TOTAL 0.34 mg/dL (0.2-1.3); CALC OSMOLALITY 278 mosm/kg (275-300); CARBON DIOXIDE 29.5 mmol/L (21.0-32.0); CHLORIDE - SERUM 102 mmol/L (98-107); CREATININE - SERUM 0.7 mg/dL (0.6-1.3); GLUCOSE 146 mg/dL (74-106); POTASSIUM - SERUM 3.9 mmol/L (3.5-5.1); SODIUM 138 mmol/L (136-145); UREA NITROGEN 13 mg/dL (7-18); eGFR NON AFRICAN AMERICAN > 90 mL/min (90-120)
[2016-10-02 10:06] VITALS: BP 143/68
--- NOTE | 2016-10-02 11:17 | NUR ---
IV IS LEAKING TO RIGHT HAND WILL REPLACE.
[2016-10-02 13:01] VITALS: BP 101/68
--- NOTE | 2016-10-02 13:08 | NUR ---
IV TO RIGHT HAND D/C WITH CATHETER INTACT.
--- NOTE | 2016-10-02 14:20 | NUR ---
DISCHARGED TO HOME AMBULATORY WITH . DISCHARGE INSTRUCTIONS GIVEN BOTH VERBALLY AND WRITTEN. ALL QUESTIONS ANSWERED. PATIENT AND FAMILY VERBALIZED UNDERSTANDING OF SAME. NO NEW PRESCRIPTIONS NEEDED.
[2016-10-03 03:06] LABS: CHOLIC ACID 2.7 umol/L (()); DEOXYCHOLIC ACID 2.3 umol/L (()); TOTAL BILE ACIDS 9.7 umol/L (()); URSODEOXYCHOLIC ACID 0.7 umol/L (())
[2016-10-03] MEDS ORDERED: ASPIRIN325 MG PO (13:12)
--- NOTE | 2016-11-10 10:17 | CN ---
PATIENT NAME:M[place]Y [place] MEDICAL RECORD: [id number] : 54 LOCATION:D[facility] ADMIT DATE: 09/27/16 ACCOUNT: [id number] CONSULTING PHYSICIAN: NATHALIE KNOWLES MD REFERRING PHYSICIAN: GREGORY BECERRA M.D. DATE OF CONSULTATION: 09/28/2016 Consultation note CHIEF COMPLAINT: Abdominal pain. HISTORY OF PRESENT ILLNESS: The patient states he is having abdominal pain and cannot eat. He underwent a laparoscopic cholecystectomy at [facility] around the middle of August. I do not have those records yet. Reportedly, he saw Dr. Valverde in his office in followup. The patient's is here as well. He states he is having epigastric pain as well as left upper quadrant abdominal pain. He has no appetite. Reportedly, he has a history of prostate cancer. Also, some type of colon fistula. Again, I do not have those records and we are going to try to get his records from [facility]. I do not know much about his past medical and surgical history. The typed portion will be in the chart including his current medications, allergies and social history. We know that he has got an ALLERGY TO MRI DYE. A CT is pending. REVIEW OF SYSTEMS: Positive for nausea. No fever and no chills. Positive for abdominal pain. Positive for some shortness breath and no chest pain. REVIEW OF SYSTEMS: Negative other than as is described above. PHYSICAL EXAMINATION: GENERAL: The patient appears acutely ill. He also appears chronically ill. VITAL SIGNS: Reviewed. HEAD: External ears appear normal. EYES: Extraocular movements are intact. NECK: Trachea is midline. CHEST: No intercostal retractions. PULMONARY: Nonlabored and no stridor. ABDOMEN: Tender in the epigastrium also left upper quadrant. There is tenderness with guarding. There is no peritonitis to percussion. INTEGUMENT: His incisions are well healed. PSYCHIATRIC: Anxious affect. NEUROLOGIC: Nonfocal, no lethargy. The patient answers questions appropriately, moves all extremities well. BACK: No thoracic kyphosis. LYMPHATICS: No lymphangitic streaking of the exposed extremities. IMPRESSION: Abdominal pain after cholecystectomy, which reportedly was for gangrenous cholecystitis. PLAN: CT of the Abdomen and Pelvis with contrast. I will obtain an abdominal ultrasound as well, so we can visualize the size of his common bile duct. TRANSINT:[id number] Voice Confirmation ID: [id number] DOCUMENT ID: [id number] CC: Dr. Patrick Valverde CONSULT REPORT [id number] [place], NATHALIE BERKOWITZ at 1017 CC: GREGORY BECERRA M.D. [id number] DICTATION DATE: 09/28/1603 SCIENCE INSTRUCTOR: 09/28/16 0928 DIS IN 10/02/16 [place] [id number] [place] [id number]
== END 2016-10-02 14:20 | disposition home or self-care (01) | DRG 357 ==
LOC: D.MS 18:59
PROVIDERS: Family Medicine; General Practice; Internal Medicine Gastroenterology; Surgery; ADMIT Family Medicine
PROC: B4141ZZ Fluoroscopy of Superior Mesenteric Artery using Low Osmolar Contrast (ICD-10-PCS; 2016-09-29)
PROC: 0D568ZZ Destruction of Stomach, Via Natural or Artificial Opening Endoscopic (ICD-10-PCS; 2016-09-29)
PROC: 04753DZ Dilation of Superior Mesenteric Artery with Intraluminal Device, Percutaneous Approach (ICD-10-PCS; principal; 2016-10-01 11:30)
DX: K55.1 Chronic vascular disorders of intestine (principal); D62 Acute posthemorrhagic anemia; I74.5 Embolism and thrombosis of iliac artery; I10 Essential (primary) hypertension; K21.9 Gastro-esophageal reflux disease without esophagitis; K31.819 Angiodysplasia of stomach and duodenum without bleeding; K29.40 Chronic atrophic gastritis without bleeding; I70.1 Atherosclerosis of renal artery

== ENCOUNTER → 2016-10-20 09:07 | Outpatient (CLI) | payer OTHER ==
[2016-09-28 10:59] VITALS: BMI 16.8
[~2016-10-20 09:07] MED LIST changes: +ASPIRIN325 MG PO; +CARAFATE1 G PO; +FLOMAX0.4 MG PO; +FOLIC ACID1 MG PO; +HYDROCODONE-APA1 TAB PO; +MULTI-DAY VITAM1 TAB PO; +PREDNISONE10 MG PO; +PROBIOTIC1 EAC1 PO; +PROTONIX40 MG PO; +VITAMIN B-1000 MCG/M IM; +VITAMIN D2000 UNIT PO
== END | disposition home or self-care (01) ==
LOC: D.CT 09:07
DX: I70.212 Atherosclerosis of native arteries of extremities with intermittent claudication, left leg (principal)

== ENCOUNTER 2016-11-08 17:55 | Outpatient (CLI) | payer OTHER ==
[2016-11-08] VITALS (8 sets, daily range): BP systolic 109–131; BP diastolic 67–78; Ht 175.3 cm; Wt 52.3 kg
[~2016-11-08] VITALS: Ht 175.3 cm; Wt 52.3 kg
--- NOTE | 2016-11-08 00:30 | NUR ---
1ST UNIT PRBC'S FINISHED AT THIS TIME. PT REMAINED WITHOUT REACTION. VSS. LINE FLUSHING. AT BEDSIDE. SIDE RAILS X 2. BED LOW. CALL LIGHT IN REACH.
[~2016-11-08 17:55] MED LIST changes: -PREDNISONE10 MG PO
--- NOTE | 2016-11-08 18:24 | NUR ---
ADMITTED TO ROOM 2218 FOR OP BLOOD TRANSFUSION. ASSESSMENT PERFORMED AND VITAL SIGNS OBTAINED. 20G IV SITED X1 ATTEMPT TO PT'S RIGHT WRIST. AT BEDSIDE. DENIES NEEDS AT THIS TIME. CALL LIGHT IN REACH, WILL CONTINUE WITH PLAN OF CARE.
--- NOTE | 2016-11-08 19:35 | NUR ---
RECIEVED SHIFT REPORT. PT IS LYING IN BED AWAITING BLOOD TRANSFUSIONS TO START. ALERT AND ORIENTED AND ABLE TO VERBALIZE NEEDS. IV IS PATENT AND SALINE LOC AT THIS TIME. PT IS AMBULATORY BUT WAS INSTRUCTED TO CALL FOR ANY ASSISTANCE NEEDED. PT DENIES ANY PAIN. NO NEEDS ARE VERBALIZED AT THIS TIME. AT BEDSIDE. WILL CONTINUE TO MONITOR. SIDE RAILS ARE UP X 2. BED IS IN LOWEST POSITION. CALL LIGHT IS WITHIN REACH.
--- NOTE | 2016-11-08 21:40 | NUR ---
1ST UNIT PRBC'S STARTED AT THIS TIME. VSS. WILL CONTINUE TO MONITOR. SIDE RAILS X 2. BED LOW. AT BEDSIDE. CALL LIGHT IN REACH.
--- NOTE | 2016-11-08 21:55 | NUR ---
PT REMAINS WITHOUT TRANSFUSION REACTION AT THIS TIME. VSS. WILL MONITOR. AT BEDSIDE. SIDE RAILS X 2. BED LOW. CALL LIGHT IN REACH.
--- NOTE | 2016-11-09 00:30 | NUR ---
1ST UNIT PRBC'S FINISHED AT THIS TIME. PT REMAINED WITHOUT REACTION. VSS. TUBE FLUSHING. AT BEDSIDE. WILL MONITOR. SIDE RAILS X 2. BED LOW. CALL LIGHT IN REACH.
--- NOTE | 2016-11-09 03:25 | NUR ---
2ND UNIT PRBC'S FINISHED AT THIS TIME. PT REMAINED WITHOUT REACTION. VSS. ORDER FOR REDRAW OF CBC PLACED FOR 1 HOUR FROM NOW. CALLED LAB AND INFORMED THEM OF ORDER AND THEY STATED THAT THEY WOULD BE HERE ON THE FLOOR FOR MORNING ROUNDS AROUND THAT TIME.
[2016-11-09 04:34] LABS: BASOPHILS 0.1 % (0.0-2.0); EOSINOPHILS 0.6 % (0-7); HEMATOCRIT 29.6 % (42.0-54.0); HEMOGLOBIN 9.7 g/dL (13.5-17.5); IMMATURE GRANULOCYTES 0.5 % (0-5); LYMPHOCYTES 19.4 % (15-50); MCH 31.5 pg (26.0-34.0); MCHC 32.8 g/dL (31.0-37.0); MCV 96.1 fL (80.0-100.0); MONOCYTES 5.6 % (2-11); NEUTROPHILS 73.8 % (40-80); RBC 3.08 10x6/uL (4.20-6.10); RDW 19.9 % (11.5-14.5); WBC 10.9 10x3/uL (4.8-10.8)
[2016-11-09 04:45] LABS: PLATELET COUNT 358 10x3/uL (130-400)
== END 2016-11-09 04:45 | disposition home or self-care (01) ==
LOC: D.MS 17:55 → D.OPS 17:55
PROVIDERS: Family Medicine
DX: D64.9 Anemia, unspecified (principal)

== ENCOUNTER → 2016-11-12 11:00 | Outpatient (CLI) | payer OTHER ==
[2016-11-08 18:50] VITALS: BMI 17.0
[~2016-11-12 11:00] MED LIST changes: +PREDNISONE10 MG PO
== END | disposition home or self-care (01) ==
LOC: D.CT 11:00
DX: I70.212 Atherosclerosis of native arteries of extremities with intermittent claudication, left leg (principal)

== ENCOUNTER 2016-12-02 05:34 | Outpatient (CLI) | payer OTHER ==
[~2016-12-02] VITALS: Ht 175.3 cm; Wt 54.5 kg
--- NOTE | ~2016-12-02 | HEMODYNAMI ---
PATIENT:MICKY [place] MEDICAL RECORD: [id number] : 54 LOCATION:HAIR ADMISSION DATE: 12/02/16 Generatedon:12/02/201611:45 Patient name: MICKY [place] Patient #: [id number] SSN: : 1950 Date of study: 12/02/2016 Page: Of Hemodynamic Procedure Report Patient Data Patient Demographics Procedure consent was obtained First Name: MICKY Gender: Male Last Name: YANELY : 1950 Middle Initial: DANIELLE Age: 66 year(s) Patient #: [id number] Race: Unknown Additional ID: [id number] Contact details [address]: [address] [place] [address] State: [place] City: [place] Zip code: [address] Past Medical History Allergies Allergen Reaction Date Comments Reported Dye contrast 10/01/2016 media Admission Admission Data Admission Date: 12/02/2016 Admission Time: 5:34 Procedure Procedure Types Cath Procedure Peripheral Cath Diagnostic Procedure Miscellaneous Procedure Description Procedure Date Procedure Date: 12/02/2016 Procedure Start Time: 9:33 Procedure Staff Name Function Ashley Conklin RT Scrub Fe Ponce RN Nurse Jose Enrique Gama RT Monitor Gorge Schroeder MD Performing Physician Procedure Data Cath Procedure Fluoroscopy Diagnostic fluoroscopy Total fluoroscopy Time: 34 time: 34 min min Diagnostic fluoroscopy Total fluoroscopy dose: 668 dose: 668 mGy mGy Contrast Material Contrast Material Type Amount (ml) Isovue 300 120 Entry Location Entry Primary Successful Side Size Upsize Upsize Entry Closure Succes sful Closure Location (Fr) 1 (Fr) 2 (Fr) Remarks Device Remarks Femoral Right 5 Fr 6 Fr Exoseal artery Short Femoral Left 5 Fr Exoseal artery Diagnostic catheters Device Type Used For End Catheter Placement Merit ULTRA BOLUS FLUSH 5Fr 65CM catheter Procedure Medications Medication Administration Route Dosage Fentanyl I.V. 50 mcg Versed I.V. 1 mg Fentanyl I.V. 50 mcg Versed I.V. 1 mg Versed I.V. 1 mg Fentanyl I.V. 50 mcg Fentanyl I.V. 50 mcg Versed I.V. 1 mg Heparin Bolus I.V. 5000 units Benadryl I.V. 50 mg Versed I.V. 1 mg Fentanyl I.V. 50 mcg Fentanyl I.V. 50 mcg Versed I.V. 1 mg Fentanyl I.V. 100 mcg Hemodynamics Rest Pre Cath Intra NCS Post Cath Vital Signs Time Heart Resp SPO2 NIBP (mmHg) Rhythm Pain Sedation Rate (ipm) (%) Status Level (bpm) 8:57:52 98 159/85(121) NSR 0 (11) 10(A) , No pain 9:36:00 12 100 152/83(115) NSR 0 (11) 10(A) , No pain 9:40:10 100 162/89(129) NSR 0 (11) 10(A) , No pain 9:44:26 84 13 100 150/80(118) NSR 0 (11) 10(A) , No pain 9:48:34 87 11 100 149/87(119) NSR 0 (11) 10(A) , No pain 9:52:44 83 14 100 148/81(114) NSR 0 (11) 10(A) , No pain 9:56:54 86 13 100 153/78(116) NSR 0 (11) 9(A) , No pain 10:01:53 88 12 100 Measuring NSR 0 (11) 9(A) , No pain 10:01:55 84 13 100 139/80(109) NSR 0 (11) 9(A) , No pain 10:05:57 82 11 99 146/94(118) NSR 0 (11) 10(A) , No pain 10:10:04 84 12 99 145/84(116) NSR 0 (11) 10(A) , No pain 10:14:14 81 12 98 156/80(112) NSR 0 (11) 9(A) , No pain 10:18:26 83 13 97 147/83(123) NSR 0 (11) 10(A) , No pain 10:22:34 84 11 98 143/84(106) NSR 0 (11) 10(A) , No pain 10:26:40 86 12 97 150/86(111) NSR 0 (11) 10(A) , No pain 10:30:48 85 12 93 139/84(115) NSR 0 (11) 9(A) , No pain 10:34:55 80 12 97 136/72(109) NSR 0 (11) 9(A) , No pain 10:39:01 80 11 96 135/76(107) NSR 0 (11) 9(A) , No pain 10:43:09 79 12 97 134/73(109) NSR 0 (11) 9(A) , No pain 10:47:15 77 10 96 134/74(104) NSR 0 (11) 9(A) , No pain 10:51:21 77 11 96 139/78(104) NSR 0 (11) 9(A) , No pain 10:55:26 79 13 95 140/79(106) NSR 0 (11) 9(A) , No pain 10:59:32 78 11 98 151/84(112) NSR 0 (11) 9(A) , No pain 11:03:42 76 14 97 138/80(115) NSR 0 (11) 9(A) , No pain 11:07:48 74 10 97 140/85(115) NSR 0 (11) 9(A) , No pain 11:11:54 75 10 97 150/82(113) NSR 0 (11) 9(A) , No pain 11:16:04 74 11 97 147/83(112) NSR 0 (11) 9(A) , No pain 11:20:12 73 12 99 165/84(129) NSR 0 (11) 9(A) , No pain 11:25:10 84 19 100 Measuring NSR 0 (11) 9(A) , No pain 11:25:27 87 19 100 189/109(150) NSR 0 (11) 9(A) , No pain 11:29:47 76 13 100 185/106(150) NSR 0 (11) 9(A) , No pain 11:34:05 82 14 100 188/107(146) NSR 0 (11) 9(A) , No pain 11:38:25 77 12 100 182/99(151) NSR 0 (11) 9(A) , No pain 11:42:43 81 8 100 181/104(148) NSR 0 (11) 9(A) , No pain Medications Time Medication Route Dose Verified Delivered Reason Notes Effe ctiveness by by 9:29:14 Versed I.V. 1 mg Fe Fe for sedation Kris Ponce RN RN 9:29:53 Fentanyl I.V. 50 Fe Fe for sedation mcg Kris Ponce RN RN 9:34:28 Fentanyl I.V. 50 Fe Fe for sedation mcg Kris Ponce RN RN 9:34:38 Versed I.V. 1 mg Fe Fe for sedation Kris Ponce RN RN 9:39:00 Fentanyl I.V. 50 Fe Fe for sedation mcg Kris Ponce RN RN 9:39:01 Versed I.V. 1 mg Fe Fe for sedation Kris Ponce RN RN 9:56:08 Fentanyl I.V. 50 Fe Fe for sedation mcg Kris Ponce RN RN 9:56:19 Versed I.V. 1 mg Fe Fe for sedation Kris Ponce RN RN 10:07:34 Heparin I.V. 5000 Fe Fe for Bolus units Kris aragon RN RN 10:16:06 Benadryl I.V. 50 mg Fe Fe for sedation Kris Ponce RN RN 10:23:53 Versed I.V. 1 mg Fe Fe for sedation Kris Ponce RN RN 10:24:00 Fentanyl I.V. 50 Fe Fe for sedation mcg Kris Ponce RN RN 11:23:00 Fentanyl I.V. 50 Fe Fe for sedation mcg Kris Ponce RN RN 11:23:08 Versed I.V. 1 mg Fe Fe for sedation Kris Ponce RN RN 11:25:29 Fentanyl I.V. 100 Fe Fe for sedation mcg Kris Ponce RN lodging facilities attendant Log Time Note 8:40:51 Jose Enrique Gama RT (R) (CV) sent for patient. Start room use. 8:41:07 Time tracking: Regular hours 8:41:13 Plan of Care:Hemodynamics will remain stable., Cardiac rhythm will remain stable., Comfort level will be maintained., Respiratory function will remain adequate., Patient/ family verbilizes understanding of procedure., Procedure tolerated without complication., Recovers from procedure without complications.. 8:41:26 Patient received from Outpatients to IR Alert and oriented. Tansferred to table in Supine position. 8:46:58 Correct patient and procedure confirmed by team. 8:47:00 Signed procedure consent form obtained from patient. 8:47:01 ECG and BP/O2 sat monitors applied to patient. 8:47:02 Full Disclosure recording started 8:47:03 - 8:47:08 H&P Date Dictated: 12/02/2016 H&P Addendum completed by physician on day of procedure. (MUST COMPLETE FOR ALL OUTPATIENTS). 8:47:11 Pre-procedure instructions explained to patient. 8:47:11 Pre-op teaching completed and patient verbalized understanding. 8:47:13 Family in waiting room. 8:47:16 Patient NPO since Midnight. 8:47:33 Was the patient premedicated? No 8:47:54 Use device set IR Diagnostic 8:47:55 Sterile Angiographic Pack opened to sterile field. 8:47:57 Bag Decanter opened to sterile field. 8:47:58 Acist Manifold opened to sterile field. 8:47:58 Acist Hand Control opened to sterile field. 8:47:59 Acist Syringe opened to sterile field. 8:48:16 Is patient on blood thinner?No 8:48:17 Patient diabetic? No. 8:48:20 ----Pre-sedation anethsthesia assessment.---- 8:48:28 Previous problem with sedation/anesthesia? No ? 8:48:29 Snore? No 8:48:45 Is the patient allergic to Iodine/contrast media? Yes. 8:48:46 Was the patient premedicated? Yes 8:48:48 Sleep apnea? No 8:48:50 Deviated septum? No 8:48:51 Opens mouth fully? Yes 8:48:52 Sticks out tongue? Yes 8:48:55 Airway obstruction? No ? 8:48:58 Dentures? No ? 8:49:04 Patient pain scale 0/10 ?. 8:49:11 IV patent on arrival in right forearm with 0.9% NaCl at [facility]. 8:51:53 Sharps counted by scrub and verified by R.N. 8:51:55 Alarms reviewed by RHomero N. 8:51:59 Bilateral groins area was prepped with chlora-prep and draped in steril e fashion 9:29:14 Versed 1 mg I.V. was administered by Fe Ponce RN; for sedation; 9::53 Fentanyl 50 mcg I.V. was administered by Fe Ponce RN; for sedation; 9::53 Physician arrived 9::54 --------ALL STOP TIME OUT------ 9::55 Final Timeout: patient, procedure, and site verified with staff and physician. All members of the team are in agreement. 9:29:57 Bilateral groins site verified by team. 9:30:29 Physical assessment completed. ASA score P 3 - A patient with severe systemic disease as per Gorge Schroeder MD. 9:30:33 Sedation plan: IV Moderate Sedation Versed, Fentanyl 9:32:55 Procedure started. 9:33:03 Local anesthetic to left femerol artery with Lidocaine 1% by Gorge Schroeder MD.INITIAL ACCESS ONLY 9:33:15 A 5 Fr sheath was inserted into the Right Femoral artery 9:34:28 Fentanyl 50 mcg I.V. was administered by Fe Ponce RN; for sedation; 9:34:38 Versed 1 mg I.V. was administered by Fe Ponce RN; for sedation; 9:34:56 Vital chart was started 9:36:13 TUBING, CONTRAST INJCTN HI PRES opened to sterile field. 9:36:13 Micropuncture VSI 4FR kit opened to sterile field. 9:36:14 SkyPower DOC .035 guide wire opened to sterile field. 9:36:14 St Yeison 5FR Sheath opened to sterile field. 9:39:00 Fentanyl 50 mcg I.V. was administered by Fe Ponce RN; for sedation; 9:39:01 Versed 1 mg I.V. was administered by Fe Ponce RN; for sedation; 9:39:34 Terumo TORQUE DEVICE PLASTIC .038 opened to sterile field. 9:39:40 Terumo ANGLE 180L glide wire opened to sterile field. 9:39:40 Terumo 5FR ANGLED 65CM glide catheter opened to sterile field. 9:40:59 A Merit ULTRA BOLUS FLUSH 5Fr 65CM catheter was advanced over the wire and used for . 9:56:08 Fentanyl 50 mcg I.V. was administered by Fe Ponce RN; for sedation; 9:56:19 Versed 1 mg I.V. was administered by Fe Ponce RN; for sedation; 10:04:34 Sheath upsized to a 6 Fr Short. 10:05:42 10:05:57 Cordis 6Fr BRITE TIP 11cm sheath opened to sterile field. 10:07:34 Heparin Bolus 5000 units I.V. was administered by Fe Ponce RN; for anticoagulation; 10:09:05 Madan GREGG 260 guide wire opened to sterile field. 10:09:06 Cordis SMART 10 X 40 X 120 stent was deployed across Undefined1 . 10:13:16 BasixTOUCH Inflation Syringe opened to sterile field. 10:13:27 Inflation number: 1 A Cordis Powerflex Pro 8.0 x 40 x 80cm balloon was prepped and advanced across the Undefined1, then inflated to 0 ROSMERY for 0:00 (min:sec). 10:16:06 Benadryl 50 mg I.V. was administered by Fe Ponce RN; for sedation; 10:18:20 St Yeison 5FR Sheath opened to sterile field. 10:18:42 Local anesthetic to left femerol artery with Lidocaine 1% by Gorge Schroeder MD.ADDITIONAL ACCESS 10:18:54 A 5 Fr sheath was inserted into the Left Femoral artery 10:23:53 Versed 1 mg I.V. was administered by Fe Ponce RN; for sedation; 10:24:00 Fentanyl 50 mcg I.V. was administered by Fe Ponce RN; for sedation; 10:31:19 CXI Catheter 90cm opened to sterile field. 10:31:21 Cook GREGG 180 guide wire opened to sterile field. 10:40:[address] .035 145 glide wire opened to sterile field. 10:46:44 CXI SUPPORT .035 150CM MATT catheter opened to sterile field. 10:48:[address] 260 .035 glide wire opened to sterile field. 10:52:21 Terumo ANGLE 260cm glide wire opened to sterile field. 10:58:19 Terumo ANGLED SS 260CM glide wire opened to sterile field. 11:23:00 Fentanyl 50 mcg I.V. was administered by Fe Ponce RN; for sedation; 11:23:08 Versed 1 mg I.V. was administered by Fe Ponce RN; for sedation; 11:23:29 Procedure ended.(Physican Out) 11:23:48 Cordis 5Fr Exoseal opened to sterile field. 11:23:55 Cordis 6Fr Exoseal opened to sterile field. 11:24:27 Sheath removed intact; hemostasis achieved with Exoseal to the Left Femoral artery. 11:24:41 Sheath removed intact; hemostasis achieved with Exoseal to the Right Femoral artery. 11:25:29 Fentanyl 100 mcg I.V. was administered by Fe Ponce RN; for sedation; 11:30:56 Fluoroscopy time 34.00 minutes. 11:31:06 Fluoroscopy dose: 668 mGy 11:31:06 Flurop Dose total: 668 11:33:05 Contrast amount:Isovue 300 120ml. 11:33:08 Sharps counted by scrub and verified by R.N. 11:33:09 Insertion/operative site no bleeding no hematoma. 11:33:15 Post-op/insertion site Right Femoral artery dressed using a 4 x 4 and Tegaderm. 11:33:18 Post-op/insertion site Left Femoral artery dressed using a 4 x 4 and Tegaderm. 11:33:22 Post right femoral artery:stable 11:33:27 Post left femerol artery:stable 11:33:29 Post Procedure Pulses reassessed and unchanged 11:33:36 Post-procedure physical assessment completed. ASA score P 3 - A patient with severe systemic disease as per Gorge Schroeder MD. 11:33:38 Post procedure rhythm: unchanged. 11:42:21 Post procedure instruction explained to patient.Patient verbalizes understanding. 11:42:22 Procedure and supply charges have been captured, reviewed, submitted an d are correct. 11:42:30 Report given to Outpatients. 11:42:35 Patient transfered to Outpatients with Bed. 11:45:09 Vital chart was stopped Intervention Summary Intervention Notes Time ActionType Lesion and Equipment Action# Pressure Duration Attributes Used 10:09:06 Deploy self Undefined1 Cordis 1 expanding SMART 10 stent X 40 X 120 stent 10:13:27 Inflate Undefined1 Cordis 1 0 00:00 balloon Powerflex Pro 8.0 x 40 x 80cm balloon Device Usage Item Name Manufacture Quantity Catalog Number Hospital Part Current Min imal Lot# / Charge Number Stock Stock Serial# Code Sterile Cardinal 1 [id number] 989539 5 Angiographic Health Pack Bag Decanter Microtek 1 2002S 222472 56655 599434 5 Medical Inc. Acist Acist 1 58503 964928 403693 417267 5 Manifold Medical Systems Inc Acist Hand Acist 1 02489 162019 299378 802127 5 Control Medical [employer] Inc Acist Syringe Acist 1 76104 159936 010327 914398 20 Medical Systems Inc TUBING, Merit 1 [id number] 688144 875203 666601 5 CONTRAST Medical INJCTN HI PRES Micropuncture VSI VASCULAR 1 7266V 025508 834876 5 VSI 4FR kit SOLUTIONS SkyPower DOC .035 [facility] 1 W06855 329770 764390 [id number] Yeison [address] St Yeison 2 025367 411440 359247 5 [id number] Sheath 0738554 Terumo TORQUE Brandenburg 1 TD01 416041 289170 101628 5 DEVICE Scientific PLASTIC .038 Terumo ANGLE Terumo 1 YS9587 219421 589101 713213 5 180L glide wire Terumo 5FR Terumo 1 CG507 601420 342240 5 ANGLED 65CM glide catheter Merit ULTRA Merit 1 [id number] 844776 946914 5 BOLUS FLUSH Medical 5Fr 65CM catheter Cordis 6Fr Cardinal 1 [id number] 686303 484593 5 BRITE TIP Health 11cm sheath Cook GREGG [facility] 1 C03527 421997 642551 5 8213708 260 guide wire Cordis SMART Cardinal 1 [id number] 964133 493526 5 [id number] 10 X 40 X 120 Health stent BasixTOUCH Merit 1 WB8360 165077 263659 142811 5 Inflation Medical Syringe Cordis Cardinal 1 [id number] 356774 909615 699943 5 Powerflex Pro Health 8.0 x 40 x 80cm balloon CXI Catheter [facility] 1 S84070 309373 975523 174519 5 7281021 90cm Cook GREGG [facility] 1 D87613 087678 856993 5 180 guide wire [facility] 1 K94840 690909 378450 5 ROADRUNNER .035 145 glide wire CXI SUPPORT [facility] 1 U04284 138347 139789 5 .035 150CM MATT catheter [facility] 1 J56138 273946 566469 5 7690632 ROADRUNNER 260 .035 glide wire Terumo ANGLE Terumo 1 XO9611 212993 136601 469027 5 260cm glide wire Terumo ANGLED Terumo 1 LT4412 864219 995872 203177 5 SS 260CM glide wire Cordis 5Fr Cardinal 1 EX500 506457 271032 477877 10 [id number] [facility] Cordis 6Fr Cardinal 1 EX600 459095 694056 389851 10 [id number] [facility] Signature Audit [place] Stage Time Signature Unsigned Intra-Procedure 12/02/2016 Jose Enrique 11:45:06 AM Natan RT (R) (CV) Signatures Monitor : Jose Enrique Signature : Natan RT Date : Time : [id number] [place] [address]
[~2016-12-02 05:34] MED LIST changes: -PREDNISONE10 MG PO
[2016-12-02 06:14] LABS: BASOPHILS 0 % (0.0-2.0); EOSINOPHILS 0 % (0-7); HEMATOCRIT 26.5 % (42.0-54.0); HEMOGLOBIN 8.4 g/dL (13.5-17.5); IMMATURE GRANULOCYTES 0.4 % (0-5); MCH 31.2 pg (26.0-34.0); MCHC 31.7 g/dL (31.0-37.0); MCV 98.5 fL (80.0-100.0); MEAN PLATELET VOLUME 9.4 fL (7.4-10.4); MONOCYTES 1.9 % (2-11); NEUTROPHILS 84.7 % (40-80); RBC 2.69 10x6/uL (4.20-6.10); RDW 18.6 % (11.5-14.5); WBC 6.9 10x3/uL (4.8-10.8)
[2016-12-02 06:19] LABS: PLATELET COUNT 584 10x3/uL (130-400)
[2016-12-02 06:24] LABS: CALC OSMOLALITY 280 mosm/kg (275-300); CALCIUM 9.3 mg/dL (8.5-10.1); CARBON DIOXIDE 27.7 mmol/L (21.0-32.0); CHLORIDE - SERUM 98 mmol/L (98-107); CREATININE - SERUM 0.9 mg/dL (0.6-1.3); GLUCOSE 173 mg/dL (74-106); POTASSIUM - SERUM 4.5 mmol/L (3.5-5.1); SODIUM 137 mmol/L (136-145); UREA NITROGEN 20 mg/dL (7-18); eGFR NON AFRICAN AMERICAN 90 mL/min (90-120)
[2016-12-02 06:31] LABS: APTT 32.6 SECONDS (22.8-39.4); INR 1.07 (0.85-1.17); PROTIME 13.8 SECONDS (11.6-15.0)
[2016-12-02 07:11] VITALS: BP 155/81; Ht 175.3 cm; Wt 54.5 kg
--- NOTE | 2016-12-02 15:47 | NUR ---
VS TAKEN AND CHARTED ON POST OP SHEET
--- NOTE | 2016-12-02 18:01 | NUR ---
1645 IV DC WITH CATHER TIP INTACT
== END 2016-12-02 17:00 | disposition home or self-care (01) ==
LOC: D.OPS 05:34 → D.RAD 08:00 → D.OPS 17:00
PROVIDERS: General Practice
DX: I70.213 Atherosclerosis of native arteries of extremities with intermittent claudication, bilateral legs (principal); I70.92 Chronic total occlusion of artery of the extremities

== ENCOUNTER 2016-12-15 07:29 | Outpatient (CLI) | payer OTHER ==
[~2016-12-15] VITALS: Ht 175.3 cm; Wt 55.7 kg
[2016-12-15] MEDS ORDERED: PREDNISONE10 MG PO (08:03)
[2016-12-15 08:12] VITALS: BP 159/74; Ht 175.3 cm; Wt 55.7 kg
--- NOTE | 2016-12-15 08:29 | NUR ---
0825 IV 500 NS STARTED LT FA WITH 20G JELCO WITH BLOOD TUBING INFUSING BY ALARIS PUMP AT 20/CC/HR AWAITING READINESS OF BLOOD. AT BEDSIDE, BREAKFAST HAS BEEN ORDERED. HGB 6.7 HCT 20.7
--- NOTE | 2016-12-15 08:47 | NUR ---
0845 1ST UNIT CHECKED AT BEDSIDE BY THIS NURSE AND JL ALLEN RN, INITATED BY ALARIS PUMP AT 50/CC/HR. REG DIET SERVED, URINAL PROVIDED.
--- NOTE | 2016-12-15 09:50 | NUR ---
0900 BLOOD INFUSING WELL, RATE INCREASED TO 150/CC/HR. PT EATING 0915 PT ATE 100%. BLOOD INCREASED TO 200/CC/HR DENIES PROBLEMS 0930 BLOOD GOING WELL. PT. STATES WANTS TO TRY TO GET A NAP STATES HAS NOT BEEN SLEEPING WELL. IV SITE PATENT.
--- NOTE | 2016-12-15 10:56 | NUR ---
1040 1ST UNIT COMPLETED, LINE BEING FLUSHED WITH SALINE. 1050 2ND UNIT BLOOD CHECKED AT BEDSIDE BY THIS NURSE AND CHELSEA RINCON RN, INITIATED BY ALARIS PUMP AT 50/CC/HR. AT BEDSIDE. DENIES PROBLEMS WITH TRANSFUSION THUS FAR.
--- NOTE | 2016-12-15 11:20 | NUR ---
1105 DENIES PROBLEMS WITH BLOOD, RATE INCREASED TO 125/CC/HR
--- NOTE | 2016-12-15 12:03 | NUR ---
1150 DENIES PROBLEMS WITH TRANSFUSION. RATE AT 175/CC/HR. REG DIET SERVED.
--- NOTE | 2016-12-15 15:47 | NUR ---
1500 PT UP TO BR VOIDS LG AMT, THEN SITTING IN CHAIR. 1525 BLOOD COMPLETED, LINE BEING FLUSHED WITH NS. AT SIDE.
--- NOTE | 2016-12-15 16:54 | NUR ---
1640 POST TRANSFUSION V.S. GOOD, IV DC'D WITH CATH INTACT. PT. VOIDS LG AMT. DENIES PROBLEMS. 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
== END 2016-12-15 16:40 | disposition home or self-care (01) ==
LOC: D.OPS 07:29
DX: D64.9 Anemia, unspecified (principal)

== ENCOUNTER 2016-12-22 06:24 | Outpatient (CLI) | payer OTHER ==
[~2016-12-22] VITALS: Ht 175.3 cm; Wt 56.8 kg
--- NOTE | ~2016-12-22 | HEMODYNAMI ---
PATIENT:MICKY NY MEDICAL RECORD: [id number] : 54 LOCATION:[facility]IR ADMISSION DATE: 12/22/16 Generatedon:12/22/201611:01 Patient name: MICKY NY Patient #: [id number] SSN: : 1950 Date of study: 12/22/2016 Page: Of Hemodynamic Procedure Report Patient Data Patient Demographics Procedure consent was obtained First Name: MICKY Gender: Male Last Name: YANELY : 1950 Middle Initial: DANIELLE Age: 66 year(s) Patient #: [id number] Race: Unknown Additional ID: [id number] Contact details [address]: [address] [place] [address] State: [place] City: [place] Zip code: [address] Past Medical History Allergies Allergen Reaction Date Comments Reported Dye contrast 10/01/2016 media Iodine 12/22/2016 Admission Admission Data Admission Date: 12/22/2016 Admission Time: 6:24 Height (in.): 69 BSA: 1.69 (m2) Height (cm.): 175.26 BMI: 18.46 (kg/m2) Weight (lbs.): 125 Weight (kg.): 56.7 Procedure Procedure Types Cath Procedure Peripheral Cath Diagnostic Procedure Cath Peripheral Abd/Extremity Extremities Bilat Lower Extremity Procedure Description Procedure Date Procedure Date: 12/22/2016 Procedure Start Time: 8:47 Procedure Staff Name Function Gorge Schroeder MD Performing Physician Jose Enrique Gama RT Scrub Kylie Viveros RN Nurse Fe Ponce RN Nurse Rosita Plummer RT Bus Washer Rosita Plummer RT Monitor Procedure Data Cath Procedure Fluoroscopy Diagnostic fluoroscopy Total fluoroscopy Time: time: 18.4 min 18.4 min Diagnostic fluoroscopy Total fluoroscopy dose: 562 dose: 562 mGy mGy Contrast Material Contrast Material Type Amount (ml) Isovue 300 185 Entry Location Entry Primary Successful Side Size Upsize Upsize Entry Closure Succes sful Closure Location (Fr) 1 (Fr) 2 (Fr) Remarks Device Remarks Femoral Right Exoseal artery Femoral Left Exoseal artery Diagnostic catheters Device Type Used For End Catheter Placement Merit ULTRA BOLUS FLUSH 5Fr 65CM catheter Procedure Medications Medication Administration Route Dosage Fentanyl I.V. 50 mcg Versed I.V. 1 mg Fentanyl I.V. 50 mcg Versed I.V. 1 mg Versed I.V. 1 mg Fentanyl I.V. 50 mcg Fentanyl I.V. 50 mcg Versed I.V. 1 mg Heparin Bolus I.V. 5000 units Fentanyl I.V. 50 mcg Benadryl I.V. 50 mg Fentanyl I.V. 50 mcg Hemodynamics Rest BSA: 1.69 (m2) O2 Consumption: Estimated: 206.15 (ml/min) O2 Consumption indexed : Estimated:121.98 (ml/min/m) Heart Rate: 84 (bpm) Snapshots Pre Cath Intra NCS Post Cath Vital Signs Time Heart Resp SPO2 NIBP (mmHg) Rhythm Pain Sedation Rate (ipm) (%) Status Level (bpm) 8:38:32 87 19 99 176/95(140) NSR 0 (11) 10(A) , No pain 8:42:52 89 17 98 174/91(127) NSR 0 (11) 10(A) , No pain 8:47:51 93 21 97 Measuring NSR 0 (11) 10(A) , No pain 8:48:22 91 20 95 156/84(129) NSR 0 (11) 10(A) , No pain 8:52:34 88 17 98 161/94(127) NSR 0 (11) 10(A) , No pain 8:56:48 92 14 97 161/92(113) NSR 0 (11) 9(A) , No pain 9:01:04 94 22 96 163/87(131) NSR 0 (11) 9(A) , No pain 9:05:17 93 21 99 144/87(121) NSR 0 (11) 9(A) , No pain 9:09:27 89 15 98 145/85(119) NSR 0 (11) 9(A) , No pain 9:13:35 83 15 97 148/90(127) NSR 0 (11) 9(A) , No pain 9:17:45 85 13 99 161/90(133) NSR 0 (11) 9(A) , No pain 9:22:01 83 14 98 159/86(122) NSR 0 (11) 9(A) , No pain 9:26:17 83 13 99 164/86(123) NSR 0 (11) 9(A) , No pain 9:31:16 82 14 97 Measuring NSR 0 (11) 9(A) , No pain 9:31:24 83 12 99 157/84(131) NSR 0 (11) 9(A) , No pain 9:35:40 80 15 98 160/85(131) NSR 0 (11) 9(A) , No pain 9:39:56 78 16 99 143/84(116) NSR 0 (11) 9(A) , No pain 9:44:06 78 15 98 154/86(127) NSR 0 (11) 9(A) , No pain 9:48:22 80 14 97 150/81(126) NSR 0 (11) 9(A) , No pain 9:52:30 82 15 98 148/100(128) NSR 0 (11) 9(A) , No pain 9:56:40 87 23 99 153/93(117) NSR 0 (11) 9(A) , No pain 10:00:54 85 16 97 155/84(118) NSR 0 (11) 9(A) , No pain 10:05:08 87 17 98 148/88(118) NSR 0 (11) 9(A) , No pain 10:09:20 88 14 99 157/84(121) NSR 0 (11) 9(A) , No pain 10:13:31 78 12 98 160/96(125) NSR 0 (11) 9(A) , No pain 10:17:48 84 17 97 162/88(134) NSR 0 (11) 9(A) , No pain 10:22:04 79 13 99 171/86(113) NSR 0 (11) 9(A) , No pain 10:26:22 83 26 98 156/99(126) NSR 0 (11) 9(A) , No pain 10:30:34 93 13 99 162/93(136) NSR 0 (11) 9(A) , No pain 10:34:50 87 14 99 174/89(118) NSR 0 (11) 9(A) , No pain 10:39:08 86 16 99 172/98(137) NSR 0 (11) 9(A) , No pain 10:43:26 84 10 99 185/93(141) NSR 0 (11) 9(A) , No pain 10:47:48 81 14 99 185/98(119) NSR 0 (11) 9(A) , No pain 10:52:47 81 12 98 Measuring NSR 0 (11) 9(A) , No pain 10:53:30 83 16 97 Disturbed NSR 0 (11) 9(A) , No pain 10:58:29 85 13 Measuring NSR 0 (11) 9(A) , No pain 10:59:14 78 15 Disturbed NSR 0 (11) 9(A) , No pain Medications Time Medication Route Dose Verified Delivered Reason Notes Effe ctiveness by by 8:47:50 Fentanyl I.V. 50 Fe Fe for sedation mcg Kris Ponce RN RN 8:47:53 Versed I.V. 1 mg Fe Fe for sedation Kris Ponce RN RN 8:52:27 Fentanyl I.V. 50 Fe Fe for sedation mcg Kris Ponce RN RN 8:52:57 Versed I.V. 1 mg Fe Fe for sedation Kris Ponce RN RN 9:05:14 Fentanyl I.V. 50 Fe Fe for sedation mcg Kris Ponce RN RN 9:05:54 Versed I.V. 1 mg Fe Fe for sedation Kris Ponce RN RN 9:35:46 Fentanyl I.V. 50 Fe Fe for sedation mcg Kris Ponce RN RN 9:35:56 Versed I.V. 1 mg Fe Fe for sedation Kris Ponce RN RN 9:55:21 Heparin I.V. 5000 Fe Ef for Bolus units Kris aragon RN RN 10:12:40 Benadryl I.V. 50 mg Fe Fe Kris Ponce RN RN 10:14:02 Fentanyl I.V. 50 Fe Fe for sedation mcg Kris Ponce RN RN 10:32:05 Fentanyl I.V. 50 Fe Fe for sedation mcg Kris Ponce RN garbage worker Log Time Note 7:30:48 Patient Height : 69 cm 7:30:51 Patient Weight : 125 kg 7:33:17 Use device set IR Diagnostic 8:15:37 Time tracking: Regular hours 8:36:09 Sterile Angiographic Pack opened to sterile field. 8:36:[address] .035 145 glide wire opened to sterile field. 8:36:15 CXI Catheter 90cm opened to sterile field. 8:36:17 Cordis 5Fr BRITE TIP 11cm sheath opened to sterile field. 8:36:19 Bag Decanter opened to sterile field. 8:36:22 Cook RAABE 6FR. 90cm guide sheath opened to sterile field. 8:36:[address] 260 .035 glide wire opened to sterile field. 8:36:24 Micropuncture VSI 4FR kit opened to sterile field. 8:36:25 RunRev DOC .035 guide wire opened to sterile field. 8:36:33 - 8:37:10 Plan of Care:Hemodynamics will remain stable., Cardiac rhythm will remain stable., Comfort level will be maintained., Respiratory function will remain adequate., Patient/ family verbilizes understanding of procedure., Procedure tolerated without complication., Recovers from procedure without complications.. 8:37:16 Patient received from Outpatients to IR Alert and oriented. Tansferred to table in Supine position. 8:37:18 Correct patient and procedure confirmed by team. 8:37:20 Signed procedure consent form obtained from patient. 8:37:22 ECG and BP/O2 sat monitors applied to patient. 8:37:23 Vital chart was started 8:37:24 Baseline sample Acquired. 8:37:25 Full Disclosure recording started 8:37:26 - 8:37:32 H&P Date Dictated: 12/22/2016 Within 30 days and on chart.. 8:37:37 Pre-procedure instructions explained to patient. 8:37:37 Pre-op teaching completed and patient verbalized understanding. 8:37:40 Family in waiting room. 8:37:43 Patient NPO since Midnight. 8:37:58 Patient allergic to Iodine 8:38:02 Is the patient allergic to Iodine/contrast media? Yes. 8:38:05 Was the patient premedicated? Yes 8:39:00 Is patient on blood thinner?No 8:39:03 Patient diabetic? No. 8:39:05 - 8:39:07 ----Pre-sedation anethsthesia assessment.---- 8:39:10 Previous problem with sedation/anesthesia? No ? 8:39:13 Snore? No 8:39:15 Sleep apnea? No 8:39:17 Deviated septum? No 8:39:19 Opens mouth fully? Yes 8:39:22 Sticks out tongue? Yes 8:39:26 Airway obstruction? No ? 8:40:02 Dentures? Yes out 8:40:11 Pre procedure: right dorsailis pedis pulse 1+ Palpable, but thready & weak; easily obliterated 8:40:21 Pre procedure: right posterior tibial pulse 1+ Palpable, but thready & weak; easily obliterated 8:40:31 Pre procedure: left dorsailis pedis pulse Doppler 8:40:38 Pre procedure: left posterior tibial pulse Doppler 8:40:52 IV patent on arrival in right forearm with 0.9% NaCl at [facility]. 8:41:07 Left groin area was prepped with chlora-prep and draped in sterile fashion 8:41:15 Left groin area was prepped with chlora-prep and draped in sterile fashion 8:41:39 Left Arm area was prepped with chlora-prep and draped in sterile fasnvo n 8:42:17 - 8:46:39 Physician arrived 8:47:01 --------ALL STOP TIME OUT------ 8:47:02 Final Timeout: patient, procedure, and site verified with staff and physician. All members of the team are in agreement. 8:47:17 Physical assessment completed. ASA score P 3 - A patient with severe systemic disease as per Gorge Schroeder MD. 8:47:22 Sedation plan: IV Moderate Sedation Versed, Fentanyl 8:47:28 Procedure started. 8:47:34 Local anesthetic to left femerol artery with Lidocaine 1% by Gorge Schroeder MD.INITIAL ACCESS ONLY 8:47:37 Arterial access obtained using ultrasound guidance. 8:47:50 Fentanyl 50 mcg I.V. was administered by Fe Ponce RN; for sedation; 8:47:53 Versed 1 mg I.V. was administered by Fe Ponce RN; for sedation; 8:52:27 Fentanyl 50 mcg I.V. was administered by Fe Ponce RN; for sedation; 8:52:57 Versed 1 mg I.V. was administered by Fe Ponce RN; for sedation; 9:05:14 Fentanyl 50 mcg I.V. was administered by Fe Ponce RN; for sedation; 9:05:54 Versed 1 mg I.V. was administered by Fe Ponce RN; for sedation; 9:17:35 Micropuncture VSI 4FR kit opened to sterile field. 9:17:36 Cook GREGG 260 guide wire opened to sterile field. 9:17:37 CXI SUPPORT .035 135 CM STR catheter opened to sterile field. 9:22:52 Terumo ANGLE 260cm glide wire opened to sterile field. 9:22:53 St Yeison 5FR Sheath opened to sterile field. 9:22:53 Terumo 5FR ANGLED 100CM glide catheter opened to sterile field. 9:23:10 ALAN AMBROSE EP .035IN L150CM catheter opened to sterile field. 9:35:46 Fentanyl 50 mcg I.V. was administered by Fe Ponce RN; for sedation; 9:35:56 Versed 1 mg I.V. was administered by Fe Ponce RN; for sedation; 9:36:51 BasixTOUCH Inflation Syringe opened to sterile field. 9:47:02 Cordis 6Fr Brite Tip 35cm Sheath opened to sterile field. 9:47:38 A Sorbent Green ULTRA BOLUS FLUSH 5Fr 65CM catheter was advanced over the wire and used for . 9:55:21 Heparin Bolus 5000 units I.V. was administered by eF Ponce RN; for anticoagulation; 9:57:19 Inflation number: 1 A Cordis Powerflex Pro 4.0 x 40 x 135cm balloon was prepped and advanced across the Undefined1, then inflated to 0 ROSMERY for 0:37 (min:sec). 9:57:42 Cook GREGG 180 guide wire opened to sterile field. 10:11:53 Cordis 6Fr Brite Tip 35cm Sheath opened to sterile field. 10:12:40 Benadryl 50 mg I.V. was administered by Fe Ponce RN; ; 10:14:02 Fentanyl 50 mcg I.V. was administered by Fe Ponce RN; for sedation; 10:15:45 Inflation Number: 2 A Cordis Amanda 8 x 59 x 80 stent was prepped and advanced across the Undefined1. The stent was deployed at 0 ROSMERY for 0:01 (min:sec). 10:17:31 Inflation Number: 1 A Cordis Amanda 7 x 59 x 80 stent was prepped and advanced across the Undefined2. The stent was deployed at 0 ROSMERY for 0:00 (min:sec). 10:22:25 Cook GREGG 260 guide wire opened to sterile field. 10:30:33 Inflation Number: 1 A Cordis Amanda 8 x 29 x 135 stent was prepped and advanced across the Undefined3. The stent was deployed at 0 ROSMERY for 0:00 (min:sec). 10:32:05 Fentanyl 50 mcg I.V. was administered by Fe Ponce RN; for sedation; 10:42:31 Cordis 6Fr Exoseal opened to sterile field. 10:42:32 Cordis 6Fr Exoseal opened to sterile field. 10:43:35 A sheath was inserted into the Right Femoral artery 10:43:35 Sheath removed intact; hemostasis achieved with Exoseal to the Right Femoral artery. 10:43:49 A sheath was inserted into the Left Femoral artery 10:43:49 Sheath removed intact; hemostasis achieved with Exoseal to the Left Femoral artery. 10:45:54 Procedure ended.(Physican Out) 10:46:09 Fluoroscopy time 18.40 minutes. 10:46:14 Flurop Dose total: 562 10:46:14 Fluoroscopy dose: 562 mGy 10:46:18 Sharps counted by scrub and verified by R.N. 11:01:03 Contrast amount:Isovue 300 185ml. 11:01:19 Procedure and supply charges have been captured, reviewed, submitted an d are correct. 11:01:37 Vital chart was stopped Intervention Summary Intervention Notes Time ActionType Lesion and Equipment Action# Pressure Duration Attributes Used 9:57:19 Inflate Undefined1 Cordis 1 0 00:37 balloon Powerflex Pro 4.0 x 40 x 135cm balloon 10:15:45 Place stent Undefined1 Cordis 2 0 00:01 Amanda 8 x 59 x 80 stent 10:17:31 Place stent Undefined2 Cordis 1 0 00:00 Amanda 7 x 59 x 80 stent 10:30:33 Place stent Undefined3 Cordis 1 0 00:00 Amanda 8 x 29 x 135 stent Device Usage Item Name Manufacture Quantity Catalog Number [facility] Lot# / Charge Number Stock Stock Serial# Code Sterile Cardinal 1 [id number] 378237 640306 5 Angiographic Health Pack Tail[employer] 1 [id number] 824019 536877 5 [id number] ROADRUNNER .035 145 glide wire CXI Catheter RunRev [facility] 1 [id number] 563724 558432 353421 5 [id number] 90cm Cordis 5Fr Cardinal 1 [id number] 601322 750147 5 BRITE TIP Health 11cm sheath Bag Decanter Microtek 1 2001S 940669 00920 053799 5 HashTip. RunRev RAABE RunRev Medical 1 V21906 133934 566051 5 6FR. 90cm guide sheath [employer] 1 F90835 069889 763790 5 [id number] ROADRUNNER 260 .035 glide wire Micropuncture VSI VASCULAR 2 7266V 568641 064021 5 VSI 4FR kit SOLUTIONS Cook DOC .035 Cook Medical 1 P25148 514844 007380 5 8954542 guide wire [facility] 2 C72417 061052 635008 5 5726230 260 guide 6289879 wire CXI SUPPORT [facility] 1 G57258 719003 693453 5 2727051 .035 135 CM STR catheter Terumo ANGLE Terumo 1 CI9955 254816 856805 821183 [address] Yeison [address] Yeison 1 059227 174163 519930 5 6148893 Sheath Terumo 5FR Terumo 1 CG508 666783 57582 730257 4 ANGLED 100CM glide catheter QUICK CROSS [employer]etics 1 747-211 194594 216500 5 EP .035IN L150CM [facility] 1 BK4536 169901 831480 515372 5 Inflation Syringe Cordis 6Fr Cardinal 2 [id number] 634120 919339 955549 1 Brite Tip Health 35cm Sheath [facility] 1 [id number] 197332 475983 5 BOLUS FLUSH 5Fr 65CM catheter Cordis Cardinal 1 [id number] 660914 832333 775588 5 Powerflex Pro Health 4.0 x 40 x 135cm balloon [facility] 1 T53369 792890 164323 5 180 guide wire Cordis Cardinal 1 [id number] 867851 070384 5 [id number] Amanda 8 x Health 59 x 80 stent Cordis Cardinal 1 [id number] 675190 264291 5 [id number] Amanda 7 x Health 59 x 80 stent Cordis Cardinal 1 [id number] 847873 994543 5 [id number] Amanda 8 x Health 29 x 135 stent Cordis 6Fr Cardinal 2 EX600 399996 285139 697670 10 [id number] Exoseal Health [id number] Signature Audit Sarles Stage Time Signature Unsigned Intra-Procedure 12/22/2016 Rosita Plummer 11:01:33 AM RT(R) Signatures Monitor : Rosita Plummer RT Signature : Date : Time : [facility] [address] [place] [address]
[~2016-12-22 06:24] MED LIST changes: +PREDNISONE10 MG PO
[2016-12-22 07:02] VITALS: BP 151/86; Ht 175.3 cm; Wt 56.8 kg
[2016-12-22 08:15] LABS: BASOPHILS 0.3 % (0.0-2.0); EOSINOPHILS 0 % (0-7); HEMOGLOBIN 9.9 g/dL (13.5-17.5); IMMATURE GRANULOCYTES 0.3 % (0-5); LYMPHOCYTES 15.9 % (15-50); MCH 31.1 pg (26.0-34.0); MCHC 31.9 g/dL (31.0-37.0); MCV 97.5 fL (80.0-100.0); MEAN PLATELET VOLUME 10.4 fL (7.4-10.4); NEUTROPHILS 80.5 % (40-80); RBC 3.18 10x6/uL (4.20-6.10); RDW 19.5 % (11.5-14.5); WBC 3.7 10x3/uL (4.8-10.8)
[2016-12-22 08:16] LABS: PLATELET COUNT 368 10x3/uL (130-400)
[2016-12-22 08:24] LABS: CALC OSMOLALITY 285 mosm/kg (275-300); CALCIUM 9.2 mg/dL (8.5-10.1); CARBON DIOXIDE 26.3 mmol/L (21.0-32.0); CHLORIDE - SERUM 103 mmol/L (98-107); CREATININE - SERUM 0.8 mg/dL (0.6-1.3); GLUCOSE 162 mg/dL (74-106); POTASSIUM - SERUM 5.5 mmol/L (3.5-5.1); SODIUM 139 mmol/L (136-145); UREA NITROGEN 24 mg/dL (7-18); eGFR NON AFRICAN AMERICAN > 90 mL/min (90-120)
[2016-12-22 08:27] LABS: APTT 29.2 SECONDS (22.8-39.4); INR 1.05 (0.85-1.17); PROTIME 13.6 SECONDS (11.6-15.0)
--- NOTE | 2016-12-22 14:49 | NUR ---
1300--REPORT RECIEVED FROM JOHN WARD RN. FREDDY YARBROUGH
--- NOTE | 2016-12-22 14:52 | NUR ---
1452--IV ADILENE HAYES RN
--- NOTE | 2016-12-22 15:38 | NUR ---
1515--DISCHARGE INSTRUCTIONS GIVEN, PT VERBALIZES UNDERSTANDING. PT OFF UNIT VIA JOSE MANUEL. FREDDY YARBROUGH
--- NOTE | 2016-12-22 17:25 | NUR ---
1300 CARE TURNED OVER TO ALEXI AUGUSTE RN AT THIS TIME.
== END 2016-12-22 15:15 | disposition home or self-care (01) ==
LOC: D.OPS 06:24 → D.SP 08:00 → D.OPS 15:15
PROVIDERS: General Practice
DX: I70.213 Atherosclerosis of native arteries of extremities with intermittent claudication, bilateral legs (principal); I70.92 Chronic total occlusion of artery of the extremities; I10 Essential (primary) hypertension; K21.9 Gastro-esophageal reflux disease without esophagitis

== ENCOUNTER → 2018-01-13 10:57 | Outpatient (CLI) | payer OTHER, MEDICARE ==
[2016-12-22 07:02] VITALS: BMI 18.5
== END | disposition home or self-care (01) ==
LOC: D.US 10:57
DX: I73.9 Peripheral vascular disease, unspecified (principal)

== ENCOUNTER → 2018-03-01 09:04 | Outpatient (CLI) | payer OTHER, MEDICARE ==
[2016-12-22 07:02] VITALS: BMI 18.5
== END | disposition home or self-care (01) ==
LOC: D.CT 09:04
DX: M54.2 Cervicalgia (principal)

== ENCOUNTER 2018-10-12 18:52 | Inpatient (IN) | payer OTHER, MEDICARE ==
[2018-10-12] VITALS (8 sets, daily range): BP systolic 98–151; BP diastolic 71–94
[~2018-10-12] VITALS: Ht 175.3 cm; Wt 65.5 kg
[2018-10-12 20:02] LABS: ALBUMIN 2.9 g/dL (3.4-5.0); ALKALINE PHOSPHATASE 127 U/L (46-116); ALT (SGPT) 17 U/L (10-68); BILIRUBIN - TOTAL 0.96 mg/dL (0.2-1.3); CALC OSMOLALITY 288 mosm/kg (275-300); CALCIUM 8.6 mg/dL (8.5-10.1); CARBON DIOXIDE 25.8 mmol/L (21.0-32.0); CHLORIDE - SERUM 104 mmol/L (98-107); CREATININE - SERUM 1.5 mg/dL (0.6-1.3); GLUCOSE 129 mg/dL (74-106); HEMATOCRIT 30.1 % (42.0-54.0); HEMOGLOBIN 10.1 g/dL (13.5-17.5); MCHC 33.6 g/dL (31.0-37.0); MCV 89.3 fL (80.0-100.0); MEAN PLATELET VOLUME 9.7 fL (7.4-10.4); POTASSIUM - SERUM 3.5 mmol/L (3.5-5.1); PROTEIN - SERUM 6.5 g/dL (6.4-8.2); RBC 3.37 10x6/uL (4.20-6.10); RDW 22.9 % (11.5-14.5); SODIUM 142 mmol/L (136-145); UREA NITROGEN 24 mg/dL (7-18); WBC 8.6 10x3/uL (4.8-10.8); eGFR NON AFRICAN AMERICAN 50 mL/min (90-120)
[2018-10-12 20:05] LABS: APTT 27.1 SECONDS (22.8-39.4); INR 1.35 (0.85-1.17); PROTIME 16.2 SECONDS (11.6-15.0)
[2018-10-12 20:18] LABS: CREATINE KINASE 25 UL (21-232); PRO BNP 18582 pg/mL (0-125)
[2018-10-12 20:21] LABS: TROPONIN-I 0.075 ng/mL (0.000-0.060)
[2018-10-12 20:22] LABS: PLATELET COUNT 442 10x3/uL (130-400)
[2018-10-12 20:23] LABS: EOSINOPHILS 3 % (0-7); LYMPHOCYTES 16 % (15-50); NEUTROPHILS 80 % (40-80); PLATELET ESTIMATE INCREASED; PLATELET MORPHOLOGY PLT CLUMPS PRESENT
[2018-10-12] MEDS ORDERED: PROCRIT/EP10000 UNIT (22:33)
[2018-10-13] VITALS (49 sets, daily range): BP systolic 89–160; BP diastolic 45–93; BMI 21.5
[2018-10-13 04:01] LABS: BASOPHILS 0.2 % (0-2); EOSINOPHILS 0 % (0-7); HEMATOCRIT 27.6 % (42.0-54.0); IMMATURE GRANULOCYTES 0.4 % (0-5); LYMPHOCYTES 2.7 % (15-50); MCH 30.3 pg (26.0-34.0); MCHC 32.6 g/dL (31.0-37.0); MCV 92.9 fL (80.0-100.0); MEAN PLATELET VOLUME 9.7 fL (7.4-10.4); MONOCYTES 6.1 % (2-11); NEUTROPHILS 90.6 % (40-80); PLATELET COUNT 253 10x3/uL (130-400); RBC 2.97 10x6/uL (4.20-6.10); RDW 22.9 % (11.5-14.5); WBC 8.5 10x3/uL (4.8-10.8)
[2018-10-13 04:13] LABS: % SATURATION 94 % (15-55); IRON 187 ug/dl (35-150); TOTAL IRON BIND CAPACITY 197 ug/dl (260-445)
[2018-10-13 04:16] LABS: UNSAT IRON BIND CAPACITY 10 ug/dl (150-375)
[2018-10-13 04:44] LABS: ALBUMIN 2.6 g/dL (3.4-5.0); ALKALINE PHOSPHATASE 124 U/L (46-116); ALT (SGPT) 16 U/L (10-68); BILIRUBIN - TOTAL 1.36 mg/dL (0.2-1.3); CALC OSMOLALITY 287 mosm/kg (275-300); CALCIUM 7.7 mg/dL (8.5-10.1); CARBON DIOXIDE 18.7 mmol/L (21.0-32.0); CHLORIDE - SERUM 96 mmol/L (98-107); CKMB 1.6 U/L (0.0-3.6); CREATINE KINASE 34 UL (21-232); CREATININE - SERUM 1.5 mg/dL (0.6-1.3); FERRITIN 16165 ng/mL (3-244); GLUCOSE 342 mg/dL (74-106); POTASSIUM - SERUM 4.3 mmol/L (3.5-5.1); PROTEIN - SERUM 6.2 g/dL (6.4-8.2); SODIUM 135 mmol/L (136-145); TROPONIN-I 0.037 ng/mL (0.000-0.060); UREA NITROGEN 23 mg/dL (7-18); eGFR NON AFRICAN AMERICAN 50 mL/min (90-120)
[2018-10-13 10:59] LABS: CKMB 2.6 U/L (0.0-3.6); CREATINE KINASE 49 UL (21-232); TROPONIN-I 0.048 ng/mL (0.000-0.060)
[2018-10-13 14:58] LABS: PROTEIN - BODY FLUID 1.8 G/DL
--- NOTE | 2018-10-13 15:09 | EC ---
PATIENT:MICKY NY DATE OF SERVICE: 10/12/18 SEX: M MEDICAL RECORD: [id number] DATE OF : 54 LOCATION:[place] [address] AGE OF PATIENT: 68 ADMISSION DATE: 10/12/18 REFERRING PHYSICIAN: INTERPRETING PHYSICIAN: DAVID HELLER MD ECHOCARDIOGRAM REPORT ECHO CHARGES 4 ECHO COMPLETE Date: 10/13/18 CLINICAL DIAGNOSIS: CHF ECHOCARDIOGRAPHIC MEASUREMENTS (adult normal given) AC root (d.<3.7cm) 2.7 cm LV Septum d (<1.2 cm> 1.2 cm Valve Excursion 1.9 cm LV Septum (systole) 1.5 cm Left Atria (s.<4.0cm> 4.2 cm LVPW d(<1.2cm) 1.3 cm RV (d.<2.3cm) 2.4 cm LVPW (sytole) 1.7 cm LV diastole(<5.6CM) 4.3 cm MV E-F(>70mm/sec) cm LV systole 2.9 cm LVOT Diameter 1.8 cm MV exc.(>10mm) cm Est.ejection fraction (50-75%) % DOPPLER: LVIT cm/sec A 52.0 cm/sec E 117 cm/sec LA cm/sec RVSP 43.0 mmHg LVOT 81.0 cm/sec AOP1/2T m/s Asc. Ao 151 cm/sec RVOT 45.0 cm/sec RA cm/sec PA 61.0 cm/sec AV Gradient Peak 9.2 mmHg AV Mean 3.9 mmHg AV Area 1.3 cm MV Gradient Peak 5.7 mmHg MV Mean 2.1 mmHg MV Area cm COMMENTS: Ecologist: Girish PATE Furniture Painter: 2 Dr. Aldana TAPE# PACS Pericardial Effusion N DATE OF SERVICE: 10/13/2018 PROCEDURE: Echocardiogram. FINDINGS: 1. Left ventricular chamber size is mildly dilated. Left ventricular systolic function is moderately reduced, overall ejection fraction estimated at 35%. 2. Left atrium is enlarged at 4.2 cm. Right atrium and right ventricle chamber sizes are as well mildly dilated. 3. Valvular structures have normal structure and motion. ECHOCARDIOGRAM REPORT [id number] MICKY [place] 4. Doppler interrogation reveals mild mitral regurgitation, moderate tricuspid regurgitation, no other valvular insufficiency or stenosis. Pulmonary systolic pressure is estimated 43 mmHg. 5. No evidence of pericardial effusion or left ventricular thrombus. TRANSINT:[id number] Voice Confirmation ID: [id number] DOCUMENT ID: [id number] DAVID HELLER MD at 1509 CC: [id number] DICTATION DATE: 10/13/18 1101 INSTALLATIONS INSPECTOR: 10/13/18 1214 ADM IN [place] [id number] [place] [address]
--- NOTE | 2018-10-13 16:00 | MORECARE ---
CASE MANAGEMENT DISCHARGE SUMMARY PATIENT: MICKY NY UNIT: [id number] ADM DATE: 10/12/18 AGE: 68 : 52 SEX: M ROOM/BED: D.2310 AUTHOR: NATALIYA HEARD PHYSICIAN: REFERRING PHYSICIAN: ISA LEVIN MD DATE OF SERVICE: 10/13/18 Discharge Plan Patient Name: MICKY [place] [facility] [facility] 1950 Planned Disposition: Anticipated Discharge Date: Discharge Date: Expected LOS: Initial Reviewer: [email or web address] Initial Review Date: 10/13/2018 Generated: 10/13/18 5:00 pm DCPIA - Discharge Planning Initial Assessment Updated by [email or web address]: Sarahy Mcdaniels on 10/13/18 3:58 pm * Is the patient Alert and Oriented? Yes * How many steps to enter\exit or inside your home? 4-5 * PCP DR. BECERRA * Pharmacy [facility] * Preadmission Environment Home with Family * ADLs Independent * Other Equipment TRANSFER CHAIR, WALKER, SHOWER CHAIR * List name and contact numbers for known caregivers / representatives who currently or will assist patient after discharge: TORIBIO [place] - SPOUSE - [phone] * Verbal permission to speak to the caregivers and representatives has been obtained from the patient. Yes * Community resources currently utilized None * Additional services required to return to the preadmission environment? No * Can the patient safely return to the preadmission environment? Yes * Has this patient been hospitalized within the prior 30 days at any hospital? No Patient Name: MICKY NY Page 00268 at 1600 All edits/amendments must be made on the electronic document DICTATION DATE: 10/13/18 1600 WELFARE CENTRE MANAGER: PETROS 10/13/18 1600 RPT#: [id number] DC DATE: STATUS: ADM IN [facility] [address] [place] [address] END OF REPORT
--- NOTE | 2018-10-13 16:12 | MORECARE ---
CASE MANAGEMENT DISCHARGE SUMMARY PATIENT: MICKY NY UNIT: [id number] ADM DATE: 10/12/18 AGE: 68 : 52 SEX: M ROOM/BED: D.2310 AUTHOR: FÉLIX,DOC PHYSICIAN: REFERRING PHYSICIAN: ISA LEVIN MD DATE OF SERVICE: 10/13/18 Discharge Plan Patient Name: MICKY NY Facility: [facility]:[place] : 1950 Planned Disposition: Anticipated Discharge Date: Discharge Date: Expected LOS: Initial Reviewer: [email or web address] Initial Review Date: 10/13/2018 Generated: 10/13/18 5:12 pm Comments DCP- Discharge Planning Updated by [email or web address]: Sarahy Mcdaniels on 10/13/18 3:[address] Patient Name: MICKY NY Admission Status: ER Accout number: [id number] Admission Date: 10-12-2018 : 1950 Admission Diagnosis: Attending: ISA LEVIN Current LOS: 1 Anticipated DC Date: Planned Disposition: Primary Insurance: [employer]ET[employer] PPO Discharge Planning Comments: CM met with patient and spouse at bedside. Patient requests for CM to speak with his Toribio. Toribio states that they lived at home together and plan on returning upon discharge. Toribio states that they have a rolling walker with seat, transfer chair, and shower chair. Toribio denies any discharge needs at this time. CM will continue to follow and assist as needed with discharge planning / needs. [employer] Solution Architect: Sarahy Mcdaniels DCPIA - Discharge Planning Initial Assessment Updated by [email or web address]: Sarahy Mcdaniels on 10/13/18 3:58 pm * Is the patient Alert and Oriented? Yes * How many steps to enter\exit or inside your home? 4-5 * PCP DR. BECERRA * Pharmacy [facility] * Preadmission Environment Home with Family * ADLs Independent * Other Equipment TRANSFER CHAIR, WALKER, SHOWER CHAIR * List name and contact numbers for known caregivers / representatives who currently or will assist patient after discharge: TORIBIO [place] - SPOUSE - [phone] * Verbal permission to speak to the caregivers and representatives has been obtained from the patient. Yes * Community resources currently utilized None * Additional services required to return to the preadmission environment? No * Can the patient safely return to the preadmission environment? Yes * Has this patient been hospitalized within the prior 30 days at any hospital? No Last DP export: 10/13/18 3:00 pm Patient Name: MICKY [place] Page [id number] at 1612 All edits/amendments must be made on the electronic document DICTATION DATE: 10/13/181611 INSPECTOR FINAL ASSEMBLY ELECTRICAL: PETROS 10/13/181611 RPT#: [id number] DC DATE: STATUS: ADM IN [facility] [address] [place] [address] END OF REPORT
[2018-10-13 17:53] LABS: MACROPHAGES BF 12 %; MESOTHELIALS BF 4 %; NEUT - BF 37 %
[2018-10-13 21:55] LABS: CKMB 2.2 U/L (0.0-3.6); CREATINE KINASE 29 UL (21-232); TROPONIN-I 0.047 ng/mL (0.000-0.060)
[2018-10-14] VITALS (30 sets, daily range): BP systolic 100–148; BP diastolic 55–99; Ht 175.3 cm; Wt 65.5 kg
[2018-10-14 04:46] LABS: HEMATOCRIT 27.3 % (42.0-54.0); MCH 30.2 pg (26.0-34.0); MCV 91.6 fL (80.0-100.0); MEAN PLATELET VOLUME 10.3 fL (7.4-10.4); RBC 2.98 10x6/uL (4.20-6.10); RDW 23.3 % (11.5-14.5)
[2018-10-14 04:47] LABS: PLATELET COUNT 161 10x3/uL (130-400); WBC 12.2 10x3/uL (4.8-10.8)
[2018-10-14 04:58] LABS: ALBUMIN 2.8 g/dL (3.4-5.0); ANION GAP 23.3 mmol/L (8-16); BILIRUBIN - TOTAL 0.95 mg/dL (0.2-1.3); CALCIUM 7.5 mg/dL (8.5-10.1); CREATININE - SERUM 1.9 mg/dL (0.6-1.3); MAGNESIUM - SERUM 1.4 mg/dL (1.8-2.4); PHOSPHOROUS 5.5 mg/dL (2.5-4.9); POTASSIUM - SERUM 4.3 mmol/L (3.5-5.1)
[2018-10-14 05:24] LABS: LYMPHOCYTES 5 % (15-50); MONOCYTES 1 % (2-11); NEUTROPHILS 91 % (40-80); PLATELET ESTIMATE NORMAL
[2018-10-14 05:25] LABS: PLATELET MORPHOLOGY GIANT PLTS PRESENT
[2018-10-14 21:06] LABS: ACID FAST SMEAR Negative (()); AFB SPECIMEN PROCESSING Not Indicated (())
[2018-10-15] VITALS (24 sets, daily range): BP systolic 88–111; BP diastolic 52–82
[2018-10-15 08:00] LABS: BASOPHILS 0.1 % (0-2); EOSINOPHILS 0 % (0-7); HEMATOCRIT 24.2 % (42.0-54.0); HEMOGLOBIN 8.4 g/dL (13.5-17.5); MCH 30.7 pg (26.0-34.0); MCHC 34.7 g/dL (31.0-37.0); MEAN PLATELET VOLUME 10.9 fL (7.4-10.4); MONOCYTES 3.2 % (2-11); PLATELET COUNT 140 10x3/uL (130-400); RBC 2.74 10x6/uL (4.20-6.10); RDW 23.3 % (11.5-14.5); WBC 14.2 10x3/uL (4.8-10.8)
[2018-10-15 08:02] LABS: MCV 88.3 fL (80.0-100.0)
[2018-10-15 08:14] LABS: ALBUMIN 2.3 g/dL (3.4-5.0); ANION GAP 16.9 mmol/L (8-16); BILIRUBIN - TOTAL 0.98 mg/dL (0.2-1.3); CALCIUM 7.5 mg/dL (8.5-10.1); CARBON DIOXIDE 21.9 mmol/L (21.0-32.0); POTASSIUM - SERUM 3.8 mmol/L (3.5-5.1); PROTEIN - SERUM 5.2 g/dL (6.4-8.2)
[2018-10-15 08:17] LABS: CREATININE - SERUM 2.6 mg/dL (0.6-1.3)
[2018-10-15 11:02] LABS: CREATININE - URINE 52.8 mg/dL (30-125); POTASSIUM - URINE 33.3 MMOL/L (12.0-62.0); PROTEIN - URINE 60.7 mg/dL (0.0-11.9)
[2018-10-15 11:07] LABS: APPEARANCE CLEAR (CLEAR); BILIRUBIN NEGATIVE (NEGATIVE); COLOR YELLOW (YELLOW); GLUCOSE NEGATIVE (NEGATIVE); KETONE NEGATIVE (NEGATIVE); NITRITE NEGATIVE (NEGATIVE); PROTEIN TRACE mg/dL (NEGATIVE); RED CELLS - URINE 0-5 /hpf (0-5); SPECIFIC GRAVITY 1.015 (1.005-1.020); UROBILINOGEN NORMAL (NORMAL); WHITE CELLS - URINE NSEEN /hpf (0-5)
[2018-10-15 11:08] LABS: EPITHELIAL CELLS 0-5 /hpf (0-5)
[2018-10-16] VITALS (42 sets, daily range): BP systolic 67–108; BP diastolic 33–95
[2018-10-16 03:55] LABS: MCH 29.7 pg (26.0-34.0); MCHC 34.5 g/dL (31.0-37.0); RDW 19.9 % (11.5-14.5); WBC 11.9 10x3/uL (4.8-10.8)
[2018-10-16 03:56] LABS: HEMATOCRIT 33.3 % (42.0-54.0); HEMOGLOBIN 11.5 g/dL (13.5-17.5); PLATELET COUNT 91 10x3/uL (130-400); RBC 3.87 10x6/uL (4.20-6.10)
[2018-10-16 04:15] LABS: ALBUMIN 2.1 g/dL (3.4-5.0); ANION GAP 12.2 mmol/L (8-16); BILIRUBIN - TOTAL 1.34 mg/dL (0.2-1.3); CALCIUM 7.3 mg/dL (8.5-10.1); CARBON DIOXIDE 22.2 mmol/L (21.0-32.0); CREATININE - SERUM 2.7 mg/dL (0.6-1.3); MAGNESIUM - SERUM 1.7 mg/dL (1.8-2.4); POTASSIUM - SERUM 3.4 mmol/L (3.5-5.1); PROTEIN - SERUM 5.4 g/dL (6.4-8.2)
[2018-10-16 04:21] LABS: PHOSPHOROUS 4.1 mg/dL (2.5-4.9)
[2018-10-16 04:28] LABS: LYMPHOCYTES 5 % (15-50); MONOCYTES 4 % (2-11); NEUTROPHILS 84 % (40-80); PLATELET ESTIMATE DECREASED
[2018-10-16 14:13] LABS: FUNGUS STAIN Final report (())
[2018-10-17] VITALS (24 sets, daily range): BP systolic 81–102; BP diastolic 30–72
[2018-10-17 06:24] LABS: BASOPHILS 0.2 % (0-2); EOSINOPHILS 0.3 % (0-7); HEMATOCRIT 29.1 % (42.0-54.0); HEMOGLOBIN 10.3 g/dL (13.5-17.5); IMMATURE GRANULOCYTES 0.3 % (0-5); LYMPHOCYTES 3.1 % (15-50); MCH 29.9 pg (26.0-34.0); MCHC 35.4 g/dL (31.0-37.0); MCV 84.6 fL (80.0-100.0); MONOCYTES 3.8 % (2-11); NEUTROPHILS 92.3 % (40-80); PLATELET COUNT 84 10x3/uL (130-400); RBC 3.44 10x6/uL (4.20-6.10); RDW 20.5 % (11.5-14.5); WBC 9.3 10x3/uL (4.8-10.8)
[2018-10-17 06:33] LABS: ALBUMIN 1.7 g/dL (3.4-5.0); BILIRUBIN - TOTAL 0.92 mg/dL (0.2-1.3); CALCIUM 7.6 mg/dL (8.5-10.1); CARBON DIOXIDE 22.9 mmol/L (21.0-32.0); CREATININE - SERUM 2.7 mg/dL (0.6-1.3); PROTEIN - SERUM 4.9 g/dL (6.4-8.2)
[2018-10-17 06:40] LABS: ANION GAP 15.1 mmol/L (8-16)
[2018-10-17 07:55] LABS: ANISOCYTOSIS 1+; CRENATED CELLS OCC; PLATELET ESTIMATE DECREASED
[2018-10-17 12:17] LABS: OSMOLALITY - URINE 354 (())
[2018-10-17 12:17] LABS: FOLATE (FOLIC ACID) - SERUM 2.7 ng/mL (>3.0)
[2018-10-18] VITALS (25 sets, daily range): BP systolic 95–125; BP diastolic 41–678
[2018-10-18 06:24] LABS: HEMATOCRIT 27.8 % (42.0-54.0); MCH 29.9 pg (26.0-34.0); PLATELET COUNT 82 10x3/uL (130-400); RBC 3.35 10x6/uL (4.20-6.10); RDW 20.5 % (11.5-14.5); WBC 10.4 10x3/uL (4.8-10.8)
[2018-10-18 06:32] LABS: ALBUMIN 1.7 g/dL (3.4-5.0); BILIRUBIN - TOTAL 1.05 mg/dL (0.2-1.3); CALCIUM 7.9 mg/dL (8.5-10.1); CARBON DIOXIDE 22.3 mmol/L (21.0-32.0); CREATININE - SERUM 2.9 mg/dL (0.6-1.3); PROTEIN - SERUM 4.9 g/dL (6.4-8.2)
[2018-10-18 06:38] LABS: ANION GAP 16.7 mmol/L (8-16)
[2018-10-18 07:24] LABS: LYMPHOCYTES 5 % (15-50); MONOCYTES 3 % (2-11); NEUTROPHILS 81 % (40-80); PLATELET ESTIMATE DECREASED; PLATELET MORPHOLOGY NORMAL PLT MORPH
[2018-10-19] VITALS (24 sets, daily range): BP systolic 82–150; BP diastolic 37–113
[2018-10-19 04:08] LABS: BASOPHILS 0.1 % (0-2); EOSINOPHILS 0.3 % (0-7); HEMATOCRIT 30.2 % (42.0-54.0); HEMOGLOBIN 10.7 g/dL (13.5-17.5); IMMATURE GRANULOCYTES 0.8 % (0-5); LYMPHOCYTES 5.5 % (15-50); MCH 29.7 pg (26.0-34.0); MCHC 35.4 g/dL (31.0-37.0); MCV 83.9 fL (80.0-100.0); MONOCYTES 6.5 % (2-11); NEUTROPHILS 86.8 % (40-80); RDW 21.3 % (11.5-14.5)
[2018-10-19 04:13] LABS: PLATELET COUNT 106 10x3/uL (130-400); WBC 14.1 10x3/uL (4.8-10.8)
[2018-10-19 04:15] LABS: APTT 44.8 SECONDS (22.8-39.4); INR 2.33 (0.85-1.17); PROTIME 24.9 SECONDS (11.6-15.0)
[2018-10-19 04:19] LABS: ALBUMIN 1.8 g/dL (3.4-5.0); BILIRUBIN - TOTAL 1.5 mg/dL (0.2-1.3); CARBON DIOXIDE 19.7 mmol/L (21.0-32.0); CREATININE - SERUM 3.1 mg/dL (0.6-1.3); PROTEIN - SERUM 5.3 g/dL (6.4-8.2)
[2018-10-19 04:20] LABS: ANION GAP 18.3 mmol/L (8-16)
[2018-10-19 14:48] LABS: LDL-HDL RATIO 4.2 ratio (1.5-3.5); MAGNESIUM - SERUM 1.6 mg/dL (1.8-2.4); PHOSPHOROUS 4.1 mg/dL (2.5-4.9)
[2018-10-19 15:09] LABS: COMPLEMENT C4 14.2 mg/dL (17.4-52.2)
[2018-10-20] VITALS (19 sets, daily range): BP systolic 86–138; BP diastolic 37–71
[2018-10-20 03:38] LABS: HEMATOCRIT 28.1 % (42.0-54.0); HEMOGLOBIN 9.6 g/dL (13.5-17.5); MCH 29.7 pg (26.0-34.0); MCHC 34.2 g/dL (31.0-37.0); PLATELET COUNT 79 10x3/uL (130-400); RBC 3.23 10x6/uL (4.20-6.10); RDW 21.9 % (11.5-14.5); WBC 14.7 10x3/uL (4.8-10.8)
[2018-10-20 03:54] LABS: ALBUMIN 1.8 g/dL (3.4-5.0); BILIRUBIN - TOTAL 1.96 mg/dL (0.2-1.3); CALCIUM 8.1 mg/dL (8.5-10.1); CREATININE - SERUM 3.6 mg/dL (0.6-1.3); PROTEIN - SERUM 5.1 g/dL (6.4-8.2)
[2018-10-20 03:58] LABS: ANION GAP 21.8 mmol/L (8-16); POTASSIUM - SERUM 4.8 mmol/L (3.5-5.1)
[2018-10-20 04:11] LABS: LYMPHOCYTES 5 % (15-50); MONOCYTES 3 % (2-11); NEUTROPHILS 77 % (40-80); PLATELET ESTIMATE DECREASED
[2018-10-20 13:53] LABS: APPEARANCE HAZY (CLEAR); BILIRUBIN NEGATIVE (NEGATIVE); COLOR DK YELLOW (YELLOW); CREATININE - URINE 46.5 mg/dL (30-125); GLUCOSE NEGATIVE (NEGATIVE); KETONE NEGATIVE (NEGATIVE); NITRITE NEGATIVE (NEGATIVE); PRO/CRE RATIO URINE 5.3 mg/g; PROTEIN 2+ mg/dL (NEGATIVE); PROTEIN - URINE 244.7 mg/dL (0.0-11.9); SPECIFIC GRAVITY 1.015 (1.005-1.020); UROBILINOGEN NORMAL (NORMAL)
[2018-10-20 13:56] LABS: AMORPHOUS SEDIMENT >1+ /lpf (NONE SEEN); BACTERIA MANY /hpf (NONE SEEN); CALCIUM OXALATE CRYSTALS 0-5 /hpf (NONE SEEN); EPITHELIAL CELLS 0-5 /hpf (0-5); GRANULAR CAST OCC /lpf (NONE SEEN); HYALINE CAST RARE /lpf (NONE SEEN); RED CELLS - URINE >50 /hpf (0-5); WHITE CELLS - URINE 0-5 /hpf (0-5)
[2018-10-21] VITALS (48 sets, daily range): BP systolic 86–111; BP diastolic 34–44
[2018-10-21 05:02] LABS: BASOPHILS 0.1 % (0-2); EOSINOPHILS 0.1 % (0-7); HEMATOCRIT 26.3 % (42.0-54.0); HEMOGLOBIN 8.4 g/dL (13.5-17.5); IMMATURE GRANULOCYTES 1.6 % (0-5); LYMPHOCYTES 5.6 % (15-50); MCH 29.8 pg (26.0-34.0); MCHC 31.9 g/dL (31.0-37.0); MONOCYTES 7.4 % (2-11); NEUTROPHILS 85.2 % (40-80); RBC 2.82 10x6/uL (4.20-6.10); RDW 22.6 % (11.5-14.5); WBC 15.5 10x3/uL (4.8-10.8)
[2018-10-21 05:04] LABS: MCV 93.3 fL (80.0-100.0); PLATELET COUNT 52 10x3/uL (130-400)
[2018-10-21 05:27] LABS: ALBUMIN 1.9 g/dL (3.4-5.0); BILIRUBIN - TOTAL 3.02 mg/dL (0.2-1.3); CALCIUM 7.8 mg/dL (8.5-10.1); CARBON DIOXIDE 16.1 mmol/L (21.0-32.0); CREATININE - SERUM 4.5 mg/dL (0.6-1.3); PROTEIN - SERUM 4.9 g/dL (6.4-8.2)
[2018-10-21 05:29] LABS: ANION GAP 24.1 mmol/L (8-16); POTASSIUM - SERUM 6.2 mmol/L (3.5-5.1)
--- NOTE | 2018-10-23 09:49 | MORECARE ---
CASE MANAGEMENT DISCHARGE SUMMARY PATIENT: MICKY NY UNIT: [id number] ADM DATE: 10/12/18 AGE: 68 : 52 SEX: M ROOM/BED: D.2310 AUTHOR: FÉLIX,DOC PHYSICIAN: REFERRING PHYSICIAN: ISA LEVIN MD DATE OF SERVICE: 10/23/18 Discharge Plan Patient Name: MICKY NY Facility: [facility]:[place] : 1950 Planned Disposition: Anticipated Discharge Date: Discharge Date: 10/22/2018 Expected LOS: Initial Reviewer: [email or web address] Initial Review Date: 10/13/2018 Generated: 10/23/18 10:49 am Comments DCP- Discharge Planning Updated by [email or web address]: Sarahy Mcdaniels on 10/13/18 3:[address] Patient Name: MICKY NY Admission Status: ER Accout number: [id number] Admission Date: 10-12-2018 : 1950 Admission Diagnosis: Attending: ISA LEVIN Current LOS: 1 Anticipated DC Date: Planned Disposition: Primary Insurance: [employer] PPO Discharge Planning Comments: CM met with patient and spouse at bedside. Patient requests for CM to speak with his Toribio. Toribio states that they lived at home together and plan on returning upon discharge. Toribio states that they have a rolling walker with seat, transfer chair, and shower chair. Toribio denies any discharge needs at this time. CM will continue to follow and assist as needed with discharge planning / needs. Wine Pasteurizer: Sarahy Mcdaniels DCPIA - Discharge Planning Initial Assessment Updated by [email or web address]: Sarahy Mcdaniels on 10/13/18 3:58 pm * Is the patient Alert and Oriented? Yes * How many steps to enter\exit or inside your home? 4-5 * PCP DR. BECERRA * Pharmacy [facility] * Preadmission Environment Home with Family * ADLs Independent * Other Equipment TRANSFER CHAIR, WALKER, SHOWER CHAIR * List name and contact numbers for known caregivers / representatives who currently or will assist patient after discharge: TORIBIO [place] - SPOUSE - [phone] * Verbal permission to speak to the caregivers and representatives has been obtained from the patient. Yes * Community resources currently utilized None * Additional services required to return to the preadmission environment? No * Can the patient safely return to the preadmission environment? Yes * Has this patient been hospitalized within the prior 30 days at any hospital? No Last DP export: 10/13/18 3:12 pm Patient Name: MICKY [place] Page 08979 at 0949 All edits/amendments must be made on the electronic document DICTATION DATE: 10/23/18948 LEGAL SECRETARY: PETROS 10/23/18948 RPT#: [id number] DC DATE:10/22/18 STATUS: DIS IN [facility] [address] [place] [address] END OF REPORT
[2018-10-23 12:12] LABS: ANA REFLEX - DBL STRANDED DNA <1 IU/mL (0-9); ANA REFLEX - DIRECT Negative (Negative)
[2018-10-23 17:09] LABS: SPE - A/G RATIO 1.1 (0.7-1.7); SPE - ALBUMIN 2.4 g/dL (2.9-4.4); SPE - ALPHA-1 GLOBULIN 0.2 g/dL (0.0-0.4); SPE - ALPHA-2 GLOBULIN 0.5 g/dL (0.4-1.0); SPE - BETA GLOBULIN 0.6 g/dL (0.7-1.3); SPE - GAMMA GLOBULIN 0.7 g/dL (0.4-1.8); SPE - M-SPIKE 0.1 g/dL (Not Observed); SPE - TOTAL PROTEIN 4.5 g/dL (6.0-8.5)
[2018-10-24 14:18] LABS: ANCA - ANTIMYELOPEROXIDASE <9.0 U/mL (0.0-9.0); ANCA - ANTIPROTEINASE 3 <3.5 U/mL (0.0-3.5); ANCA - ATYPICAL <1:20 titer (Neg:<1:20); ANCA - CYTOPLASMIC <1:20 titer (Neg:<1:20); ANCA - PERINUCLEAR <1:20 titer (Neg:<1:20)
[2018-11-09 13:18] LABS: FUNGUS MYCOLOGY CULTURE Final report (())
== END 2018-10-22 00:05 | DRG 871 ==
LOC: D.ER 18:52 → D.EDHOLD 21:06 → D.ICU 21:06
PROVIDERS: Emergency Medicine; Family Medicine; General Practice; Internal Medicine Hematology & Oncology; Internal Medicine Nephrology; Internal Medicine Pulmonary Disease; Specialist; ADMIT Internal Medicine Nephrology
PROC: 0W993ZZ Drainage of Right Pleural Cavity, Percutaneous Approach (ICD-10-PCS; principal; 2018-10-13 11:00)
PROC: 05H533Z Insertion of Infusion Device into Right Subclavian Vein, Percutaneous Approach (ICD-10-PCS; 2018-10-14)
PROC: 5A09557 Assistance with Respiratory Ventilation, Greater than 96 Consecutive Hours, Continuous Positive Airway Pressure (ICD-10-PCS; 2018-10-16)
DX: A41.9 Sepsis, unspecified organism (principal); J96.01 Acute respiratory failure with hypoxia; I50.21 Acute systolic (congestive) heart failure; N17.0 Acute kidney failure with tubular necrosis; J18.9 Pneumonia, unspecified organism; F17.203 Nicotine dependence unspecified, with withdrawal; J44.1 Chronic obstructive pulmonary disease with (acute) exacerbation; J44.0 Chronic obstructive pulmonary disease with (acute) lower respiratory infection; D62 Acute posthemorrhagic anemia; J98.11 Atelectasis; E46 Unspecified protein-calorie malnutrition; Z66 Do not resuscitate; I48.91 Unspecified atrial fibrillation; D46.9 Myelodysplastic syndrome, unspecified; S22.089D Unspecified fracture of T11-T12 vertebra, subsequent encounter for fracture with routine healing; S32.019D Unspecified fracture of first lumbar vertebra, subsequent encounter for fracture with routine healing; S32.029D Unspecified fracture of second lumbar vertebra, subsequent encounter for fracture with routine healing; S22.41XD Multiple fractures of ribs, right side, subsequent encounter for fracture with routine healing; W19.XXXD Unspecified fall, subsequent encounter; N18.9 Chronic kidney disease, unspecified; K21.9 Gastro-esophageal reflux disease without esophagitis; R53.81 Other malaise; Z85.46 Personal history of malignant neoplasm of prostate; D46.1 Refractory anemia with ring sideroblasts; E83.111 Hemochromatosis due to repeated red blood cell transfusions; I73.9 Peripheral vascular disease, unspecified; J32.9 Chronic sinusitis, unspecified; R91.8 Other nonspecific abnormal finding of lung field; I27.20 Pulmonary hypertension, unspecified